=== PATIENT | female | born 1975 | race Caucasian/White ===

== ENCOUNTER 2017-05-01 19:05 | Observation (INO) | payer MEDICAID ==
[~2017-05-01] VITALS: Ht 160 cm; Wt 70.5 kg
[~2017-05-01 19:05] MED LIST: FLOMAX0.4 MG PO; HYDROCODONE-APA1 TAB PO; OXYCONTIN10 MG PO; PERCOCET 5-3251 TAB PO; PHENERGAN25 M1 PO
[2017-05-01 19:43] LABS: BASOPHILS 0.1 % (0-2); HEMATOCRIT 38.3 % (36.0-48.0); HEMOGLOBIN 13.1 g/dL (12-16); IMMATURE GRANULOCYTES 0.1 % (0-5); LYMPHOCYTES 23.2 % (15-50); MCH 33.2 pg (26.0-34.0); MCHC 34.2 g/dL (31.0-37.0); MCV 97.2 fL (80.0-100.0); MEAN PLATELET VOLUME 10.2 fL (7.4-10.4); MONOCYTES 4.8 % (2-11); NEUTROPHILS 70.8 % (40-80); PLATELET COUNT 280 10x3/uL (130-400); RBC 3.94 10x6/uL (4.00-5.40)
[2017-05-01 19:59] LABS: ALBUMIN 3.4 g/dL (3.4-5.0); ALKALINE PHOSPHATASE 98 U/L (46-116); ALT (SGPT) 26 U/L (10-68); BILIRUBIN - TOTAL 0.42 mg/dL (0.2-1.3); CALC OSMOLALITY 282 mosm/kg (275-300); CALCIUM 9.4 mg/dL (8.5-10.1); CARBON DIOXIDE 22.5 mmol/L (21.0-32.0); CHLORIDE - SERUM 106 mmol/L (98-107); GLUCOSE 81 mg/dL (74-106); POTASSIUM - SERUM 3.2 mmol/L (3.5-5.1); SODIUM 141 mmol/L (136-145); UREA NITROGEN 20 mg/dL (7-18); eGFR NON AFRICAN AMERICAN 64 mL/min (90-120)
[2017-05-01 20:11] LABS: CKMB 1.2 U/L (0.0-3.6); CREATINE KINASE 98 UL (21-215); PRO BNP 1947 pg/mL (0-125); TROPONIN-I 0.025 ng/mL (0.000-0.060)
[2017-05-01 22:36] LABS: APPEARANCE SLT CLOUDY (CLEAR); BILIRUBIN NEGATIVE (NEGATIVE); COLOR AMBER (YELLOW); GLUCOSE NEGATIVE (NEGATIVE); KETONE NEGATIVE (NEGATIVE); NITRITE NEGATIVE (NEGATIVE); PROTEIN NEGATIVE (NEGATIVE); SPECIFIC GRAVITY 1.025 (1.005-1.020); UROBILINOGEN NORMAL (NORMAL)
[2017-05-01 22:38] LABS: BACTERIA FEW /hpf (NONE SEEN); EPITHELIAL CELLS 0-5 /hpf (0-5)
[2017-05-01 22:39] LABS: WHITE CELLS - URINE 0-5 /hpf (0-5)
[2017-05-01 22:45] LABS: CKMB 1.3 U/L (0.0-3.6); CREATINE KINASE 90 UL (21-215); TROPONIN-I 0.021 ng/mL (0.000-0.060)
[2017-05-02] VITALS (7 sets, daily range): BP systolic 131–156; BP diastolic 89–104; Ht 160 cm; Wt 70.5 kg
[2017-05-02 05:39] LABS: CREATINE KINASE 94 UL (21-215)
[2017-05-02 05:40] LABS: TROPONIN-I < 0.017 ng/mL (0.000-0.060)
[2017-05-02 10:44] LABS: CKMB 0.7 U/L (0.0-3.6); CREATINE KINASE 66 UL (21-215)
[2017-05-02 10:48] LABS: TROPONIN-I < 0.017 ng/mL (0.000-0.060)
[2017-05-03 00:02] VITALS: BP 142/98
[2017-05-03 05:54] VITALS: BP 133/95
[2017-05-03 05:56] LABS: BASOPHILS 0 % (0-2); EOSINOPHILS 0 % (0-7); HEMOGLOBIN 12.3 g/dL (12-16); IMMATURE GRANULOCYTES 0.2 % (0-5); LYMPHOCYTES 6.4 % (15-50); MCH 32.6 pg (26.0-34.0); MCHC 33.2 g/dL (31.0-37.0); MCV 98.1 fL (80.0-100.0); MEAN PLATELET VOLUME 10.8 fL (7.4-10.4); MONOCYTES 2.1 % (2-11); NEUTROPHILS 91.3 % (40-80); PLATELET COUNT 281 10x3/uL (130-400); RBC 3.77 10x6/uL (4.00-5.40); RDW 13.2 % (11.5-14.5)
[2017-05-03 06:02] LABS: WBC 11.4 10x3/uL (4.8-10.8)
[2017-05-03 06:21] LABS: ANION GAP 17.3 mmol/L (8-16); BILIRUBIN - TOTAL 0.27 mg/dL (0.2-1.3); CALCIUM 8.8 mg/dL (8.5-10.1); CARBON DIOXIDE 19.3 mmol/L (21.0-32.0); CREATININE - SERUM 0.9 mg/dL (0.6-1.3); POTASSIUM - SERUM 3.6 mmol/L (3.5-5.1); PROTEIN - SERUM 7.4 g/dL (6.4-8.2)
[2017-05-03 08:49] VITALS: BP 144/96
[2017-05-03 12:34] VITALS: BP 152/103
[2017-05-03 16:46] VITALS: BP 135/95
[2017-05-03 20:00] VITALS: BP 146/104
[2017-05-04 02:30] VITALS: BP 155/114; BP 180/92
[2017-05-04 05:52] VITALS: BP 148/104
[2017-05-04 06:04] LABS: BASOPHILS 0.1 % (0-2); EOSINOPHILS 0.1 % (0-7); HEMATOCRIT 41.4 % (36.0-48.0); HEMOGLOBIN 13.6 g/dL (12-16); IMMATURE GRANULOCYTES 0.2 % (0-5); LYMPHOCYTES 10.9 % (15-50); MCH 33.1 pg (26.0-34.0); MCHC 32.9 g/dL (31.0-37.0); MONOCYTES 6.4 % (2-11); NEUTROPHILS 82.3 % (40-80); PLATELET COUNT 288 10x3/uL (130-400); RBC 4.11 10x6/uL (4.00-5.40); RDW 13.5 % (11.5-14.5); WBC 11.8 10x3/uL (4.8-10.8)
[2017-05-04 06:14] LABS: MCV 100.7 fL (80.0-100.0)
[2017-05-04 06:20] LABS: ALBUMIN 2.9 g/dL (3.4-5.0); ALKALINE PHOSPHATASE 90 U/L (46-116); BILIRUBIN - TOTAL 0.27 mg/dL (0.2-1.3); CALCIUM 8.7 mg/dL (8.5-10.1); CHLORIDE - SERUM 104 mmol/L (98-107); CREATININE - SERUM 0.8 mg/dL (0.6-1.3); POTASSIUM - SERUM 3.6 mmol/L (3.5-5.1); PROTEIN - SERUM 7.4 g/dL (6.4-8.2); SODIUM 137 mmol/L (136-145); UREA NITROGEN 17 mg/dL (7-18); eGFR NON AFRICAN AMERICAN 83 mL/min (90-120)
[2017-05-04 06:22] LABS: CALC OSMOLALITY 276 mosm/kg (275-300); GLUCOSE 109 mg/dL (74-106)
[2017-05-04 06:23] LABS: ALT (SGPT) 53 U/L (10-68); CARBON DIOXIDE 24.7 mmol/L (21.0-32.0)
[2017-05-04 07:55] VITALS: BP 124/86
[2017-05-04 11:52] VITALS: BP 138/104
[2017-05-04] MEDS ORDERED: IPRAT-ALBUT 0.5-3 ML INH (13:34)
[2017-05-04] MEDS ORDERED: ALBUTEROL2.5 MG/3 M INH (13:34)
[2017-05-04] MEDS ORDERED: NORVASC5 MG PO (13:35)
[2017-05-04] MEDS ORDERED: LISINOPRIL10 MG PO (13:35)
[2017-05-04] MEDS ORDERED: ASPIRIN325 MG PO (13:35)
[2017-05-04] MEDS ORDERED: PREDNISONE10 MG PO (13:35)
[2017-05-04] MEDS ORDERED: CATAPRES0.1 MG PO (13:35)
[2017-05-04] MEDS ORDERED: NICODERM C1 PATCH .1 TRANSDERM (13:35)
[2017-05-04] MEDS ORDERED: SYMBICORT 16010.2 GM INH (14:23)
[2017-05-04] MEDS ORDERED: PROAIR HFA8.5 GM INH (14:23)
== END 2017-05-04 16:09 | disposition home or self-care (01) ==
LOC: D.ER 19:05 → D.M2 22:19 → OBSVTIME 22:19 → D.M2 05-04 16:09
PROVIDERS: Emergency Medicine; Family Medicine
DX: J44.1 Chronic obstructive pulmonary disease with (acute) exacerbation (principal); I16.0 Hypertensive urgency; F17.203 Nicotine dependence unspecified, with withdrawal; I45.10 Unspecified right bundle-branch block; I27.20 Pulmonary hypertension, unspecified; I07.1 Rheumatic tricuspid insufficiency; R91.1 Solitary pulmonary nodule

== ENCOUNTER 2017-08-10 19:54 | Inpatient (IN) | payer MEDICAID ==
[~2017-08-10] VITALS: Ht 160 cm; Wt 67.6 kg
--- NOTE | ~2017-08-10 | OP ---
PATIENT NAME: SAUMYA ACUNA MEDICAL RECORD: [id number] :75 LOCATION:D.MS [id number] ADMISSION DATE:08/11/17 SURGEON: GERARDO CANO MD DATE OF OPERATION: 08/12/2017 SURGEON: Gerardo Cano MD ANESTHESIA: MAC by Bev Davis CRNA PREOPERATIVE DIAGNOSIS: Right proximal ureteral 8 x 6 mm stone. PROCEDURE: Right ESWL times 3000 shocks. FINDINGS: Radiodense ureteral stone. ESTIMATED BLOOD LOSS: None. CLINICAL HISTORY: This is a 42-year-old female, who was admitted with right flank pain due to a large stone in the right proximal ureter. Earlier this morning, she had a right ureteral stent inserted. We gave her antibiotics at that time. She comes now to have right lithotripsy performed. Since she had antibiotics earlier, she did not need another dose of antibiotics. DESCRIPTION OF PROCEDURE: The patient was placed on the treatment table. She was given IV sedation. The stone was targeted in 2 planes and was given 3000 shocks. The stone was seen to break up. I will see her in followup in 2 weeks' time with a KUB. If at that time, the stone is entirely gone, the stent will be removed by pulling on the string. TRANSINT:[id number] Voice Confirmation ID: [id number] DOCUMENT ID: [id number] GERARDO CANO MD at 1005 CC: [id number] DICTATION DATE: 08/12/17 1320 INFANT TEACHER: 08/12/17 1354 ADM IN [place] [id number] [place] [address]
--- NOTE | ~2017-08-10 | OP ---
PATIENT NAME: SAUMYA ACUNA MEDICAL RECORD: [id number] :75 LOCATION:D.MS [id number] ADMISSION DATE:08/11/17 SURGEON: GERARDO CANO MD DATE OF OPERATION: 08/12/2017 SURGEON: Gerardo Cano MD ANESTHESIA: MAC by Chase Haider CRNA PREOPERATIVE DIAGNOSIS: An 8-mm right proximal ureteral stone. POSTOPERATIVE DIAGNOSIS: An 8-mm right proximal ureteral stone. PROCEDURE: Cystoscopy, right retrograde pyelogram, right ureteral stent insertion 6-Swiss x 26 cm with string attached. FINDINGS: Radiodense right proximal ureteral stone at the L3 vertebral body. COMPLICATIONS: None. CLINICAL HISTORY: This is a 42-year-old female with a previous history of kidney stones. She came in with acute right flank pain with nausea and vomiting, but no fever. She had a CT scan of the abdomen and pelvis, which showed an 8 x 6 mm right proximal ureteral stone causing hydronephrosis. She was admitted for pain control. She is now consented for cystoscopy and right ureteral stent insertion. Later today, she will have a right ESWL to break up the stone. She is not allergic to any medications. She was given Ancef 1 gram legal services professional to the OR. She is 5 feet 2 inches in height and I estimated based on the patient's height that she would require a 22 cm long stent. DESCRIPTION OF PROCEDURE: The patient was given IV sedation. She was placed in the dorsal lithotomy position and prepped and draped. We obtained the serum beta hCG and it was negative prior to starting the procedure. Fluoroscopy showed the possible stone, but there was lot of bowel contents adjacent to it. This was also a problem with a KUB that I obtained last night. Therefore, we performed a retrograde pyelogram. A 5-Swiss open-ended ureteral catheter was inserted into the right ureteral orifice and contrast was injected. The diluted contrast outlined the stone at the L3 vertebral body level. A Sensor wire was then placed up into the renal pelvis. It had some difficulty getting past the stone as the ureter was quite tortuous there and makes a hairpin turn at that point. Once the wire was in correct position, the open-ended ureteral catheter was removed entirely. We then inserted the 6-Swiss x 22 cm ureteral stent. However, due to the tortuosity of the ureter, it turned out that the stent was too short. I then switched to a 6-Swiss x 26 cm ureteral stent and this was of adequate length. Once the stent was in correct position, the wire was entirely withdrawn. The distal end of the stent was pushed into the bladder using the pusher. The string from the distal end of the stent still hangs out of the patient's urethra. The patient's bladder was emptied completely and then the cystoscope was removed. The string was taped to the suprapubic area with a small piece of Tegaderm. The patient will be brought to the recovery room. She will then be transferred to have lithotripsy performed. TRANSINT:[id number] Voice Confirmation ID: [id number] DOCUMENT ID: [id number] OPERATIVE REPORT [id number] SAUMYA ACUNA, GERARDO Mccoy MD at 1317 CC: [id number] DICTATION DATE: 08/12/17 1030 EMERGENCY PLANNING AND RESPONSE MANAGER: 08/12/17 1111 [facility] IN [facility] [address] [id number]
[~2017-08-10 19:54] MED LIST changes: +ALBUTEROL2.5 MG/3 M INH; +ASPIRIN325 MG PO; +CATAPRES0.1 MG PO; +IPRAT-ALBUT 0.5-3 ML INH; +LISINOPRIL10 MG PO; +NICODERM C1 PATCH .1 TRANSDERM; +NORVASC5 MG PO; +PREDNISONE10 MG PO; +PROAIR HFA8.5 GM INH; +SYMBICORT 16010.2 GM INH
[2017-08-10 20:40] LABS: APPEARANCE HAZY (CLEAR); COLOR YELLOW (YELLOW); SPECIFIC GRAVITY 1.025 (1.005-1.020)
[2017-08-10 20:41] LABS: BILIRUBIN NEGATIVE (NEGATIVE); GLUCOSE NEGATIVE (NEGATIVE); KETONE NEGATIVE (NEGATIVE); NITRITE POSITIVE (NEGATIVE); PROTEIN 1+ mg/dL (NEGATIVE); UROBILINOGEN NORMAL (NORMAL)
[2017-08-10 20:46] LABS: BACTERIA MANY /hpf (NONE SEEN); WHITE CELLS - URINE >50 /hpf (0-5)
[2017-08-10 20:47] LABS: MUCUS <1+ /lpf (NONE SEEN)
[2017-08-10 22:00] LABS: BASOPHILS 0.2 % (0-2); EOSINOPHILS 0.5 % (0-7); HEMATOCRIT 37.3 % (36.0-48.0); HEMOGLOBIN 12.2 g/dL (12-16); IMMATURE GRANULOCYTES 0.2 % (0-5); LYMPHOCYTES 15.5 % (15-50); MCH 31.5 pg (26.0-34.0); MCHC 32.7 g/dL (31.0-37.0); MCV 96.4 fL (80.0-100.0); MEAN PLATELET VOLUME 10.2 fL (7.4-10.4); MONOCYTES 6.4 % (2-11); NEUTROPHILS 77.2 % (40-80); PLATELET COUNT 327 10x3/uL (130-400); RBC 3.87 10x6/uL (4.00-5.40); RDW 12.9 % (11.5-14.5)
[2017-08-10 22:20] LABS: ANION GAP 18.3 mmol/L (8-16); BILIRUBIN - TOTAL 0.37 mg/dL (0.2-1.3); CALCIUM 8.8 mg/dL (8.5-10.1); CARBON DIOXIDE 16.8 mmol/L (21.0-32.0); POTASSIUM - SERUM 5.1 mmol/L (3.5-5.1); PROTEIN - SERUM 7.8 g/dL (6.4-8.2)
[2017-08-11 03:32] VITALS: BP 141/99; BMI 26.4
[2017-08-11 04:00] VITALS: BP 135/94
[2017-08-11 08:07] VITALS: BP 118/80
[2017-08-11 10:43] LABS: HEMATOCRIT 36.6 % (36.0-48.0); HEMOGLOBIN 11.7 g/dL (12-16); MCH 31.1 pg (26.0-34.0); MCV 97.3 fL (80.0-100.0); MEAN PLATELET VOLUME 10.4 fL (7.4-10.4); PLATELET COUNT 303 10x3/uL (130-400); RBC 3.76 10x6/uL (4.00-5.40); RDW 13.1 % (11.5-14.5); WBC 21.3 10x3/uL (4.8-10.8)
[2017-08-11 10:49] LABS: ALBUMIN 2.5 g/dL (3.4-5.0); BILIRUBIN - TOTAL 0.3 mg/dL (0.2-1.3); CALCIUM 8.7 mg/dL (8.5-10.1)
[2017-08-11 10:56] LABS: ANION GAP 16.3 mmol/L (8-16); CARBON DIOXIDE 21.5 mmol/L (21.0-32.0); POTASSIUM - SERUM 3.8 mmol/L (3.5-5.1)
[2017-08-11 11:39] VITALS: BP 109/73
[2017-08-11 11:59] LABS: LYMPHOCYTES 11 % (15-50); MONOCYTES 4 % (2-11); NEUTROPHILS 81 % (40-80); PLATELET ESTIMATE NORMAL
[2017-08-11 14:15] VITALS: BMI 26.4
[2017-08-11 15:44] VITALS: BP 125/89
[2017-08-11 18:06] VITALS: Ht 160 cm; Wt 67.6 kg
[2017-08-11 19:48] VITALS: BP 122/89
[2017-08-12] VITALS (14 sets, daily range): BP systolic 111–152; BP diastolic 76–110
[2017-08-12 06:38] LABS: BASOPHILS 0.2 % (0-2); EOSINOPHILS 1.1 % (0-7); HEMOGLOBIN 12.1 g/dL (12-16); IMMATURE GRANULOCYTES 0.2 % (0-5); LYMPHOCYTES 17.9 % (15-50); MCH 31.2 pg (26.0-34.0); MCHC 31.8 g/dL (31.0-37.0); MCV 97.9 fL (80.0-100.0); MEAN PLATELET VOLUME 10.4 fL (7.4-10.4); MONOCYTES 7.7 % (2-11); NEUTROPHILS 72.9 % (40-80); PLATELET COUNT 273 10x3/uL (130-400); RBC 3.88 10x6/uL (4.00-5.40); RDW 13.1 % (11.5-14.5); WBC 12.4 10x3/uL (4.8-10.8)
[2017-08-12 07:05] LABS: ALBUMIN 2.5 g/dL (3.4-5.0); ALKALINE PHOSPHATASE 79 U/L (46-116); ALT (SGPT) 31 U/L (10-68); CALC OSMOLALITY 276 mosm/kg (275-300); CALCIUM 8.7 mg/dL (8.5-10.1); CHLORIDE - SERUM 107 mmol/L (98-107); CREATININE - SERUM 0.8 mg/dL (0.6-1.3); GLUCOSE 88 mg/dL (74-106); POTASSIUM - SERUM 3.6 mmol/L (3.5-5.1); PROTEIN - SERUM 7.3 g/dL (6.4-8.2); SODIUM 139 mmol/L (136-145); UREA NITROGEN 12 mg/dL (7-18); eGFR NON AFRICAN AMERICAN 83 mL/min (90-120)
[2017-08-12 09:27] LABS: HCG SERUM NEGATIVE (NEGATIVE)
[2017-08-13 02:26] VITALS: BP 124/89
[2017-08-13 04:24] LABS: BASOPHILS 0.1 % (0-2); EOSINOPHILS 1.6 % (0-7); HEMATOCRIT 33.5 % (36.0-48.0); HEMOGLOBIN 10.7 g/dL (12-16); IMMATURE GRANULOCYTES 0.4 % (0-5); LYMPHOCYTES 21.6 % (15-50); MCH 30.5 pg (26.0-34.0); MCHC 31.9 g/dL (31.0-37.0); MEAN PLATELET VOLUME 10.5 fL (7.4-10.4); MONOCYTES 8.6 % (2-11); NEUTROPHILS 67.7 % (40-80); PLATELET COUNT 278 10x3/uL (130-400); RBC 3.51 10x6/uL (4.00-5.40)
[2017-08-13 04:26] LABS: WBC 8.2 10x3/uL (4.8-10.8)
[2017-08-13 04:27] LABS: MCV 95.4 fL (80.0-100.0)
[2017-08-13 04:28] VITALS: BP 141/95
[2017-08-13 05:13] LABS: ALBUMIN 2.2 g/dL (3.4-5.0); ALKALINE PHOSPHATASE 73 U/L (46-116); BILIRUBIN - TOTAL 0.29 mg/dL (0.2-1.3); CALCIUM 8.4 mg/dL (8.5-10.1); CARBON DIOXIDE 19.4 mmol/L (21.0-32.0); CHLORIDE - SERUM 104 mmol/L (98-107); CREATININE - SERUM 0.6 mg/dL (0.6-1.3); GLUCOSE 96 mg/dL (74-106); POTASSIUM - SERUM 3.5 mmol/L (3.5-5.1); PROTEIN - SERUM 6.5 g/dL (6.4-8.2); SODIUM 137 mmol/L (136-145); eGFR NON AFRICAN AMERICAN > 90 mL/min (90-120)
[2017-08-13 05:14] LABS: ALT (SGPT) 22 U/L (10-68); CALC OSMOLALITY 271 mosm/kg (275-300); UREA NITROGEN 8 mg/dL (7-18)
[2017-08-13 09:48] VITALS: BP 121/86
[2017-08-13] MEDS ORDERED: FLORAJEN3 CAPS460 MG PO (13:03)
[2017-08-13] MEDS ORDERED: LEVAQUIN750 MG PO (13:03)
[2017-08-13 13:22] VITALS: BP 127/83
== END 2017-08-13 14:15 | disposition home or self-care (01) | DRG 691 ==
LOC: D.ER 19:54 → OBSVTIME 08-11 00:24 → D.EDHOLD 08-11 00:24 → D.MS 08-11 00:24
PROVIDERS: Family Medicine; Urology
PROC: BT1D1ZZ Fluoroscopy of Right Kidney, Ureter and Bladder using Low Osmolar Contrast (ICD-10-PCS; 2017-08-12)
PROC: 0T768DZ Dilation of Right Ureter with Intraluminal Device, Via Natural or Artificial Opening Endoscopic (ICD-10-PCS; 2017-08-12)
PROC: 0TF6XZZ Fragmentation in Right Ureter, External Approach (ICD-10-PCS; principal; 2017-08-12 09:45)
DX: N13.2 Hydronephrosis with renal and ureteral calculous obstruction (principal); F17.203 Nicotine dependence unspecified, with withdrawal; J44.9 Chronic obstructive pulmonary disease, unspecified; I10 Essential (primary) hypertension; I27.20 Pulmonary hypertension, unspecified; I07.1 Rheumatic tricuspid insufficiency

== ENCOUNTER → 2017-08-20 08:51 | Outpatient (CLI) | payer MEDICAID ==
[2017-08-11 18:06] VITALS: BMI 26.4
[~2017-08-20 08:51] MED LIST changes: +FLORAJEN3 CAPS460 MG PO; +LEVAQUIN750 MG PO
== END | disposition home or self-care (01) ==
LOC: D.RAD 08:51
DX: N20.0 Calculus of kidney (principal)

== ENCOUNTER → 2017-10-11 12:32 | Outpatient (CLI) | payer MEDICAID ==
[2017-08-11 18:06] VITALS: BMI 26.4
== END | disposition home or self-care (01) ==
LOC: D.CT 12:32
DX: R91.1 Solitary pulmonary nodule (principal)

== ENCOUNTER → 2018-07-06 08:00 | Outpatient (CLI) | payer MEDICAID ==
[2017-08-11 18:06] VITALS: BMI 26.4
== END | disposition home or self-care (01) ==
LOC: D.MAMMO 06-24 13:45
PROVIDERS: ATTEND Emergency Medicine
DX: Z12.31 Encounter for screening mammogram for malignant neoplasm of breast (principal)

== ENCOUNTER 2018-07-29 19:00 | Outpatient (CLI) | payer SELFPAY ==
[2017-08-11 18:06] VITALS: BMI 26.4
== END 2018-07-29 23:59 | disposition home or self-care (01) ==
LOC: D.MAMMO 19:00
PROVIDERS: ATTEND Emergency Medicine
DX: R92.8 Other abnormal and inconclusive findings on diagnostic imaging of breast (principal)

== ENCOUNTER 2018-08-07 23:45 | Inpatient (IN) | payer SELFPAY ==
[~2018-08-07] VITALS: Ht 160 cm; Wt 68.5 kg
--- NOTE | ~2018-08-07 | CN ---
PATIENT NAME:SAUMYA ACUNA MEDICAL RECORD: [id number] : 75 LOCATION:D. D.2120 ADMIT DATE: 08/08/18 ACCOUNT: [id number] CONSULTING PHYSICIAN: JERICA ZAMBRANO MD REFERRING PHYSICIAN: JODY VALADEZ MD DATE OF CONSULTATION: 08/08/2018 DIAGNOSES: 1. Atrial fibrillation with rapid ventricular response. 2. Abnormal ECG. 3. Chest pain. 4. Hypertension. 5. Abdominal pain. 6. Smoking history. 7. Chronic obstructive pulmonary disease. HISTORY OF PRESENT ILLNESS: Mrs. Acuna presents with abdominal pain and some chest pain, found to be in atrial fibrillation with rapid ventricular response. She also had episodes of nausea and vomiting. She was placed on a Cardizem drip. She is now in sinus rhythm. PHYSICAL EXAMINATION: GENERAL APPEARANCE: Well-nourished, well-developed, appears stated age. Level of distress, comfortable. PSYCHIATRIC: Mental status, alert, normal affect. Orientation, oriented to time, place and person. EYES: Lids and conjunctiva, noninjected. No discharge, no pallor. ENT: Lips, teeth, gums, normal dentition. Oropharynx, no cyanosis, no pallor. NECK: Carotid arteries, bilateral normal upstroke, no bruits, no thrills. JUGULAR VEINS: No jugular venous pressure or distention. CERVICAL LYMPH NODES: Nontender, nonenlarged. THYROID: Not enlarged. Nontender. No nodules. LUNGS: Respiratory effort, unlabored. CHEST: Normal curvature. No thoracic deformity. No chest wall tenderness. Percussion, resonant. Auscultation, clear. No wheezes, no rales, no rhonchi. CARDIOVASCULAR: Precordial exam, nondisplaced. No heaves or pericardial thrills. Rate and rhythm, regular. Heart sounds, normal S1, normal S2. No S3, no gallop, no rub. Systolic murmur, not heard. Diastolic murmur, not heard. EXTREMITIES: No cyanosis, no edema. Peripheral pulses, full and equal in all extremities, except as noted. No bruits appreciated. ABDOMEN: Soft, nondistended. Normal aorta. No bruit. Nontender. No masses. Liver, nontender, no hepatomegaly. Spleen, nontender, no splenomegaly. MUSCULOSKELETAL: No joint tenderness. No joint swelling. No erythema. NEUROLOGICAL: Normal gait, normal strength, normal tone. SKIN: Warm and dry. OVERALL IMPRESSION: Atrial fibrillation with rapid ventricular response. She did have significant ST-T changes with the atrial fibrillation. With that paired with her chest pain and possibly even the abdominal pain being cardiac in nature, will need evaluation with coronary angiography if she is still quite nauseated, but she is markedly better since the heart has been in rhythm. This is most likely all cardiac in nature. She is on a Cardizem drip. We will await until she is able to take p.o., change her to p.o. Cardizem, discontinuing her Norvasc and proceed with coronary angiography most likely in the a.m. CONSULT REPORT [id number] SAUMYA ACUNA TRANSINT:[id number] Voice Confirmation ID: [id number] DOCUMENT ID: [id number] JERICA ZAMBRANO MD CC: [id number] DICTATION DATE: 08/08/18803 BAND SAWMILL OPERATOR: 08/08/18 08 ADM IN [place] [id number] [place] [id number]
--- NOTE | ~2018-08-07 | OP ---
PATIENT NAME: SAUMYA ACUNA MEDICAL RECORD: [id number] :75 LOCATION:D.M2 D.0 ADMISSION DATE:08/08/18 SURGEON: JERICA ZAMBRANO MD DATE OF OPERATION: 08/09/2018 PROCEDURES: 1. Right heart catheterization. 2. Left heart catheterization. 3. Selective coronary angiography. 4. Left ventriculogram. INDICATION: Abnormal ECG, chest pain, pulmonary hypertension. PROCEDURE IN DETAIL: After informed consent was obtained and after a detailed description of risks, benefits as well as alternative therapies, the patient elected to proceed with angiogram and heart catheterization. The right femoral area was prepped and draped in normal sterile fashion. Right femoral artery was cannulated via modified Seldinger technique with placement of 5-Korean arterial sheath, 7-Korean venous sheath. All catheters exchanged through this sheath. FINDINGS: The left ventriculogram was performed in standard 30-degree HERNDON view, reveals good cardiac wall motion throughout all segments. Overall ejection fraction estimated 60%. SELECTIVE CORONARY ANGIOGRAPHY: Left main, left anterior descending, left circumflex, right coronary artery are smooth-walled vessels with no angiographic evidence of coronary artery disease. HEMODYNAMICS: Right atrial mean pressure of 5, right ventricular pressure 86/5, pulmonary artery pressure 90/20, pulmonary capillary wedge of 20. Adenosine was infused starting at 100 mcg going to 200 and 300 mcg terminated due to bradycardia with no change in pulmonary pressure with adenosine infusion. OVERALL IMPRESSION: 1. Fixed pulmonary hypertension with no response to adenosine. 2. No coronary artery disease is present. 3. Normal left ventricular function. TRANSINT:[id number] Voice Confirmation ID: [id number] DOCUMENT ID: [id number] JERICA ZAMBRANO MD CC: [id number] DICTATION DATE: 08/09/18 1048 MORTGAGE COUNSELOR: 08/09/18 1058 ADM IN [facility] [address] [place] [address]
--- NOTE | ~2018-08-07 | HEMODYNAMI ---
PATIENT:SAUMYA ACUNA MEDICAL RECORD: [id number] : 75 [id number] ADMISSION DATE: 08/08/18 Generatedon:08/09/201810:49 Patient name: SAUMYA ACUNA Patient #: [id number] SSN: : 1975 Date of study: 08/09/2018 Page: Of Hemodynamic Procedure Report Patient Data Patient Demographics Procedure consent was obtained First Name: SAUMYA Gender: Female Last Name: ARMAND : 1975 Middle Initial: S Age: 43 year(s) Patient #: [id number] Race: Unknown Additional ID: [id number] Contact details Address: [address] [place] [address] State: [place] City: [place] Zip code: [address] Past Medical History Allergies: No known allergies Admission Admission Data Admission Date: 08/08/2018 Admission Time: 2:33 Admit Source: Other Room #: D.2120 Lab Results Lab Result Date: 08/09/2018 Lab Result Time: 0:00 Biochemistry Name Units Result Min Max BUN mg/dl 16 --(---*)-- 7 18 Creatinine mg/dl 0.8 --(-*--)-- 0.6 1.3 CBC Name Units Result Min Max Hemoglobin g/dl 14.2 --(*---)-- 13.5 17.5 Procedure Procedure Types Cath Procedure Diagnostic Procedure LHC Right Heart RHC and LHC w/Coronaries Procedure Description Procedure Date Procedure Date: 08/09/2018 Procedure Start Time: 10:28 Procedure End Time: 10:46 Procedure Staff Name Function Dmear Lam MD Performing Physician Benigno Salas RT Monitor Adriana Nunez RN Nurse Guadalupe Cantu RT Scrub Procedure Data Cath Procedure Fluoroscopy Diagnostic fluoroscopy Total fluoroscopy Time: 2 time: 2 min min Diagnostic fluoroscopy Total fluoroscopy dose: 169 dose: 169 mGy mGy Contrast Material Contrast Material Type Amount (ml) Isovue 300 29 Entry Location Entry Primary Successful Side Size Upsize Upsize Entry Closure Cochran ccessful Closure Location (Fr) 1 (Fr) 2 (Fr) Remarks Device Remarks Femoral Right 5 Fr Exoseal artery Femoral Right 7 Fr Manual vein Short Compression Diagnostic catheters Device Type Used For End Catheter Placement SWAN 7Fr Thermodilution Pressure cather (131F7P) Measurement MULTIPACK Pigtail 5 Fr LV Angiography catheter MULTIPACK JL 4.0 5Fr Left Coronary catheter Angiography MULTIPACK 3DRC 5Fr Right Coronary catheter Angiography Procedure Complications No complications Procedure Medications Medication Administration Route Dosage 0.9% NaCl I.V. 100 ml/hr Oxygen etCO2 Nasal cannula 2 l/min Lidocaine 2% added to field 20 Heparin Flush Bag added to field 2 bags (1000units/500ml NS) Versed I.V. 2 mg Fentanyl I.V. 50 mcg Versed I.V. 2 mg Fentanyl I.V. 50 mcg Adenosine IV 3mg/ml I.V. 100 mcg/kg/min Adenosine IV 3mg/ml I.V. 200 mcg/kg/min Adenosine IV 3mg/ml I.V. 200 mcg/kg/min Adenosine IV 3mg/ml I.V. 0 mcg/kg/min Hemodynamics Rest HGB: 14.2 (g/dl) Heart Rate: 84 (bpm) Pressure Samples Time Site Value (mmHg) Purpose Heart Use Rate(bpm) 10:31 PA 87/35(51) Snapshot 87 10:35 PA 84/31(48) Snapshot 86 10:37 PA 86/34(50) Snapshot 88 10:39 PA 89/34(52) Snapshot 86 10:40 PA 91/27(42) Snapshot 46 10:40 PA 81/23(38) Snapshot 39 10:40 PCW 38/75(49) Snapshot 78 10:41 RV 78/3,13 Snapshot 78 Snapshots Pre Cath Intra NCS Post Cath Vital Signs Time Heart Resp SPO2 etCO2 NIBP (mmHg) Rhythm Pain Sedation Rate (ipm) (%) (mmHg) Status Level (bpm) 9:25:11 85 15 99 12 132/99(127) NSR 0 (11) 10(A) , No pain 9:29:21 90 19 98 28 140/96(106) NSR 0 (11) 10(A) , No pain 9:33:29 84 16 100 10.5 137/88(113) NSR 0 (11) 10(A) , No pain 9:37:37 90 15 98 13.5 137/93(109) NSR 0 (11) 10(A) , No pain 9:41:47 89 12 98 27.9 124/89(104) NSR 0 (11) 10(A) , No pain 9:45:57 88 14 98 26.3 132/86(100) NSR 0 (11) 10(A) , No pain 9:50:05 89 13 98 24.8 121/88(103) NSR 0 (11) 10(A) , No pain 9:54:12 88 14 99 22.6 121/84(97) NSR 0 (11) 10(A) , No pain 9:58:22 89 13 99 23.4 117/83(96) NSR 0 (11) 10(A) , No pain 10:02:32 88 14 99 20.3 125/77(94) NSR 0 (11) 10(A) , No pain 10:06:40 87 15 99 21.1 120/82(94) NSR 0 (11) 10(A) , No pain 10:10:48 87 14 100 24.1 126/84(96) NSR 0 (11) 10(A) , No pain 10:14:56 87 14 99 23.4 123/81(100) NSR 0 (11) 10(A) , No pain 10:19:03 87 12 99 21.8 118/85(100) NSR 0 (11) 10(A) , No pain 10:23:11 89 12 99 19.6 116/82(96) NSR 0 (11) 9(A) , No pain 10:27:19 85 12 98 22.6 115/82(95) NSR 0 (11) 9(A) , No pain 10:31:25 87 13 96 19.6 124/87(103) NSR 0 (11) 9(A) , No pain 10:35:35 84 12 96 18.1 128/83(109) NSR 0 (11) 9(A) , No pain 10:39:41 93 19 98 17.3 102/74(85) NSR 0 (11) 9(A) , No pain 10:43:46 84 19 98 18.8 107/71(85) NSR 0 (11) 10(A) , No pain Medications Time Medication Route Dose Verified Delivered Reason Notes Effectiveness by by 9:30:18 0.9% NaCl I.V. 100 ml/hr Demar Adriana used for Carole Nunez marketing strategy lead 9:30:27 Oxygen etCO2 2 l/min Demar Adriana used for Nasal Carole Nunez procedure cannula RN 9:30:32 Lidocaine 2% added 20ml vial Demar Benz for local to Carole Lam MD anesthetic field 9:30:36 Heparin Flush added 2 bags Demar Benz used for Bag to Carole Lam MD procedure (1000units/500ml field NS) 10:15:50 Versed I.V. 2 mg Demar Adriana for Carole Nunez sedation RN 10:15:56 Fentanyl I.V. 50 mcg Demar Adriana for Carole Nunez sedation RN 10:21:21 Versed I.V. 2 mg Demar Adriana for Carole Nunez sedation RN 10:21:25 Fentanyl I.V. 50 mcg Demar Adriana for Carole Nunez sedation RN 10:35:31 Adenosine IV I.V. 100 Demar Adriana Per 3mg/ml mcg/kg/min Carole Nunez physician RN 10:37:34 Adenosine IV I.V. 200 Demar Adriana Per 3mg/ml mcg/kg/min Carole Nunez physician RN 10:39:26 Adenosine IV I.V. 200 Demar Adriana Per 3mg/ml mcg/kg/min Carole Nunez physician RN 10:40:36 Adenosine IV I.V. 0 Demar Adriana Per 3mg/ml mcg/kg/min Carole Nunez physician corporate webmaster Log Time Note 9:06:19 Admit Source: Other 9:06:49 Diagnostic Cath status Elective 9:06:50 Benigno ROSALES(R) sent for patient. Start room use. 9:06:52 Time tracking: Regular hours (M-F 7:00 - 5:00) 9:06:56 Plan of Care:Hemodynamics will remain stable., Cardiac rhythm will remain stable., Comfort level will be maintained., Respiratory function will remain adequate., Patient/ family verbilizes understanding of procedure., Procedure tolerated without complication., Recovers from procedure without complications.. 9:22:50 Patient received from Med II to CCL 1 Alert and oriented. Tansferred to table in Supine position. 9:22:51 Warm blankets applied, and hanny hugger turned on for patient comfort. 9:22:51 Correct patient and procedure confirmed by team. 9:22:52 Signed procedure consent form obtained from patient. 9:22:53 ECG and BP/O2 sat monitors applied to patient. 9:24:11 Vital chart was started 9:24:12 Baseline sample Acquired. 9:30:18 0.9% NaCl 100 ml/hr I.V. was administered by Adriana Nunez RN; used for procedure; 9:30:27 Oxygen 2 l/min etCO2 Nasal cannula was administered by Adriana Nunez RN; used for procedure; 9:30:32 Lidocaine 2% 20ml vial added to field was administered by Demar Lam MD; for local anesthetic; 9:30:36 Heparin Flush Bag (1000units/500ml NS) 2 bags added to field was administered by Demar Lam MD; used for procedure; 9:35:27 Rhythm: sinus rhythm 9:35:29 Full Disclosure recording started 9:35:35 H&P Date Dictated: 08/09/2018 Within 30 days and on chart.. 9:35:37 Pre-procedure instructions explained to patient. 9:35:38 Pre-op teaching completed and patient verbalized understanding. 9:35:42 Family unavailable. 9:35:54 Patient NPO since Midnight. 9:36:02 Patient allergic to No known allergies 9:36:08 Is the patient allergic to Iodine/contrast media? No. 9:36:10 Is patient on blood thinner?No 9:36:13 Patient diabetic? No. 9:36:14 ----Pre-sedation anethsthesia assessment.---- 9:36:17 Previous problem with sedation/anesthesia? No ? 9:36:20 Snore? No 9:36:22 Sleep apnea? No 9:36:23 Deviated septum? No 9:36:26 Opens mouth fully? Yes 9:36:31 Sticks out tongue? Yes 9:36:37 Airway obstruction? Yes COPD 9:36:45 Dentures? Yes IN TIGHT 9:36:49 Pre procedure: right dorsailis pedis pulse 2+ Normal; easily identifiable; not easily obliterated 9:36:54 Patient pain scale 0/10 ?. 9:37:03 IV patent on arrival in right antecubital with 0.9% NaCl at 10ml/hr. 9::41 Lab Result : BUN 16 mg/dl ::41 Lab Result : Creatinine 0.8 mg/dl :: Lab Result : Hemoglobin 14.2 g/dl 9:37:44 Lab results completed and on chart. 9:37:48 Left groin area was prepped with betadine and draped in sterile fashion 9:37:51 Right groin area was prepped with chlora-prep and draped in sterile fashion 9:37:52 Alarms reviewed by R. N. 9:37:52 Sharps counted by scrub and verified by R.N. 10:01:08 Sharps counted by scrub and verified by R.N. 10:15:11 Zero performed for pressure channel P1 10:15:19 Physician arrived 10:15:19 --------ALL STOP TIME OUT------ 10:15:20 Final Timeout: patient, procedure, and site verified with staff and physician. All members of the team are in agreement. 10:15:21 Right groin site verified by team. 10:15:24 Maximum allowable Isovue 300 dose 300ml. Physician notified. (300ml for normal creatinines. For patients with creatinine of 1.7 or higher multiply weight(kg) x 5 divided by creatinine.) 10:15:28 Fire Safety Assessment: A--An alcohol-based skin anteseptic being used preoperatively., C--Open oxygen or nitrous oxide is being used., D--An ESU, laser, or fiber-optic light is being used. 10:15:32 Physical assessment completed. ASA score P 2 - A patient with mild systemic disease as per Demar Lam MD. 10:15:36 Sedation plan: IV Moderate Sedation Medication:Versed, Fentanyl 10:15:50 Versed 2 mg I.V. was administered by Adriana Nunez RN; for sedation; 10:15:56 Fentanyl 50 mcg I.V. was administered by Adriana Nunez RN; for sedation; 10:21:09 Use device set Femoral Dx 10:21:10 ACIST Syringe (32889) opened to sterile field. 10:21:11 Bag Decanter (2002S) opened to sterile field. 10:21:11 Medline Cath Pack ([id number]) opened to sterile field. 10:21:11 DIAGNOSTIC WIRE .035 260cm J wire (881788) opened to sterile field. 10:21:19 ACIST Hand Control (55448) opened to sterile field. 10:21:20 ACIST Manifold (89308) opened to sterile field. 10:21:20 DIAGNOSTIC Multipack 5Fr catheter set (SC1951) opened to sterile field. 10:21:21 Versed 2 mg I.V. was administered by Adriaan Nunez RN; for sedation; 10:21:21 Tegaderm 4 x 4 (1626W) opened to sterile field. 10:21:23 SHEATH 5FR Joppa (YJQ574) opened to sterile field. 10:21:25 Fentanyl 50 mcg I.V. was administered by Adriana Nunez RN; for sedation; 10:21:42 SHEATH 7FR Joppa (JVC233) opened to sterile field. 10:24:33 Procedure started. 10:28:34 Local anesthetic to right femoral artery with Lidocaine 2% by Demar Lam MD.INITIAL ACCESS ONLY 10:28:43 A 5 Fr sheath was inserted into the Right Femoral artery 10:28:59 A 7 Fr Short sheath was inserted into the Right Femoral vein 10:30:23 A SWAN 7Fr Thermodilution cather (131F7P) was advanced over the wire and used for Pressure Measurement. 10:30:40 Baseline sample Acquired. 10:35:31 Adenosine IV 3mg/ml 100 mcg/kg/min I.V. was administered by Adriana Nunez RN; Per physician; 10:37:34 Adenosine IV 3mg/ml 200 mcg/kg/min I.V. was administered by Adriana Nunez RN; Per physician; 10:39:26 Adenosine IV 3mg/ml 200 mcg/kg/min I.V. was administered by Adriana Nunez RN; Per physician; 10:40:36 Adenosine IV 3mg/ml 0 mcg/kg/min I.V. was administered by Adriana Nunez RN; Per physician; 10:41:31 Catheter removed. 10:41:41 A MULTIPACK Pigtail 5 Fr catheter was advanced over the wire and used for LV Angiography. 10:42:11 LV angiography performed. 10:42:13 LV gram done using HERNDON 10:42:18 EF : 60 % 10:42:19 Catheter removed. 10:42:26 A MULTIPACK JL 4.0 5Fr catheter was advanced over the wire and used for Left Coronary Angiography. 10:42:30 LCA angiography performed. 10:43:09 Catheter removed. 10:43:18 A MULTIPACK 3DRC 5Fr catheter was advanced over the wire and used for Right Coronary Angiography. 10:43:23 RCA angiography performed. 10:43:47 Catheter removed. 10:44:18 Sheath removed intact; hemostasis achieved with Exoseal to the Right Femoral artery. 10:44:21 EXOSEAL 5Fr (EX500) opened to sterile field. 10:44:47 Sheath removed intact; hemostasis achieved with Manual Compression to the Right Femoral vein. 10:44:49 Procedure ended.(Physican Out) 10:45:01 Fluoroscopy time 02.00 minutes. 10:45:14 Flurop Dose total: 169 10:45:14 Fluoroscopy dose: 169 mGy 10:45:24 Contrast amount:Isovue 300 29ml. 10:45:26 Sharps counted by scrub and verified by R.N. 10:45:27 Insertion/operative site no bleeding no hematoma. 10:45:29 Post-op/insertion site Right Femoral artery dressed using a 4 x 4 and Tegaderm. 10:45:32 Post right femoral artery:stable 10:45:34 Post Procedure Pulses reassessed and unchanged 10:45:36 Post procedure: right dorsailis pedis pulse 2+ Normal; easily identifiable; not easily obliterated. 10:45:40 Post procedure rhythm: sinus rhythm 10:45:41 Post procedure instruction explained to patient.Patient verbalizes understanding. 10:45:42 Procedure and supply charges have been captured, reviewed, submitted and are correct. 10:46:01 Procedure Complication : No complications 10:46:03 Vital chart was stopped 10:46:04 See physician's report for complete and final results. 10:46:06 Report given to PCU. 10:46:19 Patient transfered to PCU with Stretcher. 10:46:21 Procedure ended. 10:46:21 Full Disclosure recording stopped 10:46:26 End room use (Document Last) Device Usage Item Name Manufacture Quantity Catalog Hospital Part Current Minima l Lot# / Number Charge Number Stock Stock Serial# Code ACIST Syringe Acist 1 86360 871680 940792 264037 20 (11411) Medical Systems Inc Bag Decanter Microtek 1 2001S 517998 87171 482386 5 () Medical Inc. Medline Cath Medline 1 [id number] 067075 69115 555438 5 Pack ([id number]) DIAGNOSTIC St Oswaldo 1 378782 085534 703179 108610 30 WIRE .035 260cm J wire (518584) ACIST Hand Acist 1 28624 844732 987234 362743 5 Control Medical (70679) Systems Inc ACIST Manifold Acist 1 06606 744294 772679 939855 5 (32494) Medical Systems Inc DIAGNOSTIC Cardinal 1 [id number] 160718 68952 897889 30 Multipack 5Fr Health catheter set (AM4991) Tegaderm 4 x 4 3M 1 1626W 338788 784102 175224 5 (1626W) SHEATH 5FR Terumo 1 ZKB214 996929 601438 907156 5 Joppa (HYG090) SHEATH 7FR Terumo 1 IGR560 141142 606106 769235 5 Joppa (QXX587) SWAN 7Fr Donald 1 131F7P 193986 20984 768401 3 Thermodilution Lifesciences cather (131F7P) MULTIPACK Cardinal 1 754630 5 Pigtail 5 Fr Health catheter MULTIPACK JL Cardinal 1 401707 5 4.0 5Fr Health catheter MULTIPACK 3DRC Cardinal 1 297163 5 5Fr catheter Health EXOSEAL 5Fr Cardinal 1 EX500 979786 562909 136342 10 (EX500) Health Signature Audit [place] Stage Time Signature Unsigned Intra-Procedure 08/09/2018 Benigno ROSALES(Vamsi) 10:49:19 AM Signatures Monitor : Benigno Salas RT Signature : Date : Time : [facility] [address] [place] [address]
--- NOTE | ~2018-08-07 | EC ---
PATIENT:SAUMYA ACUNA DATE OF SERVICE: 08/08/18 SEX: F MEDICAL RECORD: [id number] DATE OF : 75 LOCATION:D.M2 D.212 AGE OF PATIENT: 43 ADMISSION DATE: 08/08/18 REFERRING PHYSICIAN: INTERPRETING PHYSICIAN: JERICA LAM MD ECHOCARDIOGRAM REPORT ECHO CHARGES 4 ECHO COMPLETE Date: 08/08/18 CLINICAL DIAGNOSIS: AFIB ECHOCARDIOGRAPHIC MEASUREMENTS (adult normal given) AC root (d.<3.7cm) 3.6 cm LV Septum d (<1.2 cm> 1.5 cm Valve Excursion 1.7 cm LV Septum (systole) 1.6 cm Left Atria (s.<4.0cm> 2.7 cm LVPW d(<1.2cm) 0.8 cm RV (d.<2.3cm) 3.1 cm LVPW (sytole) 1.2 cm LV diastole(<5.6CM) 4.6 cm MV E-F(>70mm/sec) cm LV systole 3.7 cm LVOT Diameter 1.7 cm MV exc.(>10mm) cm Est.ejection fraction (50-75%) % DOPPLER: LVIT cm/sec A 89 cm/sec E 37 cm/sec LA cm/sec RVSP 81.0 mmHg LVOT 112 cm/sec AOP1/2T m/s Asc. Ao 137 cm/sec RVOT 53 cm/sec RA cm/sec PA 55 cm/sec AV Gradient Peak 7.5 mmHg AV Mean 4.4 mmHg AV Area 1.9 cm MV Gradient Peak 2.5 mmHg MV Mean 1.2 mmHg MV Area cm COMMENTS: Business Instructor: Perry CASTILLORAMAKRISHNA LALA Best Worker: 1 Dr. Lam TAPE# PACS Pericardial Effusion N DATE OF SERVICE: 08/08/2018 ECHOCARDIOGRAM FINDINGS: 1. Left ventricular chamber size is within normal limits. Left ventricular systolic function is normal. Overall ejection fraction estimated at 60%. 2. Left atrium is within normal limits. Right atrium and right ventricular chamber sizes are moderately dilated. 3. Valvular structures have normal structure and motion. ECHOCARDIOGRAM REPORT [id number] SAUMYA ACUNA 4. Doppler interrogation reveals severe tricuspid regurgitation with pulmonary hypertension, pulmonary systolic pressure is estimated at 81 mmHg. 5. No evidence of pericardial effusion or left ventricular thrombus. TRANSINT:[id number] Voice Confirmation ID: [id number] DOCUMENT ID: [id number] JERICA LAM MD CC: [id number] DICTATION DATE: 08/08/18 1604 PROGRAM ARRANGER: 08/08/18 1822 ADM IN [facility] [address] [place] [address]
[2018-08-07] MEDS ORDERED: HYDRALAZINE HC100 MG PO (23:53)
[2018-08-07] MEDS ORDERED: COMBIVENT RESPIM4 GM INH (23:53)
[2018-08-07] MEDS ORDERED: MOBIC7.5 MG PO (23:54)
[2018-08-08] VITALS (10 sets, daily range): BP systolic 105–158; BP diastolic 51–103; Ht 160 cm; Wt 68.5 kg
[2018-08-08 00:23] LABS: BASOPHILS 0.3 % (0-2); EOSINOPHILS 2.4 % (0-7); HEMATOCRIT 41.7 % (36.0-48.0); HEMOGLOBIN 14.2 g/dL (12-16); IMMATURE GRANULOCYTES 0.1 % (0-5); MCH 32.9 pg (26.0-34.0); MCHC 34.1 g/dL (31.0-37.0); MCV 96.8 fL (80.0-100.0); MEAN PLATELET VOLUME 10.5 fL (7.4-10.4); MONOCYTES 6.1 % (2-11); NEUTROPHILS 83.1 % (40-80); PLATELET COUNT 303 10x3/uL (130-400); RBC 4.31 10x6/uL (4.00-5.40); RDW 13.1 % (11.5-14.5)
[2018-08-08 00:29] LABS: APTT 27.4 SECONDS (22.8-39.4)
[2018-08-08 00:30] LABS: INR 0.99 (0.85-1.17); PROTIME 12.6 SECONDS (11.6-15.0)
[2018-08-08 00:31] LABS: D-DIMER-QUANTITATIVE 0.38 ug/mLFEU (0.20-0.54)
[2018-08-08 00:32] LABS: HCG URINE NEGATIVE (NEGATIVE)
[2018-08-08 00:37] LABS: ALBUMIN 3.4 g/dL (3.4-5.0); ALKALINE PHOSPHATASE 126 U/L (46-116); ALT (SGPT) 81 U/L (10-68); BILIRUBIN - TOTAL 0.27 mg/dL (0.2-1.3); CALC OSMOLALITY 265 mosm/kg (275-300); CALCIUM 8.6 mg/dL (8.5-10.1); CARBON DIOXIDE 22.4 mmol/L (21.0-32.0); CHLORIDE - SERUM 99 mmol/L (98-107); CREATININE - SERUM 0.8 mg/dL (0.6-1.3); GLUCOSE 80 mg/dL (74-106); POTASSIUM - SERUM 3.9 mmol/L (3.5-5.1); PROTEIN - SERUM 9.4 g/dL (6.4-8.2); SODIUM 133 mmol/L (136-145); UREA NITROGEN 16 mg/dL (7-18); eGFR NON AFRICAN AMERICAN 83 mL/min (90-120)
[2018-08-08 00:48] LABS: AMYLASE - SERUM 48 U/L (25-115); CKMB 1.8 U/L (0.0-3.6); CREATINE KINASE 79 UL (21-215); LIPASE 148 U/L (73-393); TROPONIN-I 0.026 ng/mL (0.000-0.060)
[2018-08-08 00:48] LABS: APPEARANCE CLEAR (CLEAR); BACTERIA NONE SEEN /hpf (NONE SEEN); BILIRUBIN NEGATIVE (NEGATIVE); COLOR YELLOW (YELLOW); EPITHELIAL CELLS NSEEN /hpf (0-5); GLUCOSE NEGATIVE (NEGATIVE); KETONE NEGATIVE (NEGATIVE); NITRITE NEGATIVE (NEGATIVE); PROTEIN NEGATIVE (NEGATIVE); UROBILINOGEN NORMAL (NORMAL); WHITE CELLS - URINE 0-5 /hpf (0-5)
[2018-08-08] MEDS ORDERED: NORVASC10 MG PO (03:08)
[2018-08-09 03:55] VITALS: BP 119/79
[2018-08-09 05:39] LABS: BASOPHILS 0.1 % (0-2); EOSINOPHILS 0 % (0-7); HEMATOCRIT 38.7 % (36.0-48.0); HEMOGLOBIN 12.9 g/dL (12-16); IMMATURE GRANULOCYTES 0.1 % (0-5); MCH 32.3 pg (26.0-34.0); MCHC 33.3 g/dL (31.0-37.0); MCV 96.8 fL (80.0-100.0); MEAN PLATELET VOLUME 10.7 fL (7.4-10.4); MONOCYTES 10.1 % (2-11); NEUTROPHILS 73.7 % (40-80); PLATELET COUNT 249 10x3/uL (130-400); RDW 13.6 % (11.5-14.5); WBC 6.9 10x3/uL (4.8-10.8)
[2018-08-09 06:07] LABS: ALKALINE PHOSPHATASE 85 U/L (46-116); BILIRUBIN - TOTAL 0.23 mg/dL (0.2-1.3); CALCIUM 7.5 mg/dL (8.5-10.1); CARBON DIOXIDE 23.9 mmol/L (21.0-32.0); CHLORIDE - SERUM 104 mmol/L (98-107); CREATININE - SERUM 0.7 mg/dL (0.6-1.3); GLUCOSE 85 mg/dL (74-106); MAGNESIUM - SERUM 1.5 mg/dL (1.8-2.4); POTASSIUM - SERUM 3.8 mmol/L (3.5-5.1); PROTEIN - SERUM 7.2 g/dL (6.4-8.2); SODIUM 136 mmol/L (136-145); eGFR NON AFRICAN AMERICAN > 90 mL/min (90-120)
[2018-08-09 06:13] LABS: ALBUMIN 2.4 g/dL (3.4-5.0); ALT (SGPT) 59 U/L (10-68); CALC OSMOLALITY 269 mosm/kg (275-300); UREA NITROGEN 9 mg/dL (7-18)
[2018-08-09 08:37] VITALS: BP 137/91
[2018-08-09 12:13] VITALS: BP 132/90
[2018-08-09 16:30] VITALS: BP 131/77
--- NOTE | 2018-08-09 17:47 | MORECARE ---
CASE MANAGEMENT DISCHARGE SUMMARY PATIENT: SAUMYA ACUNA UNIT: [id number] ADM DATE: 08/08/18 AGE: 43 : 75 SEX: F ROOM/BED: D.2120 AUTHOR: JAYSON MAJANO PHYSICIAN: REFERRING PHYSICIAN: JODY VALADEZ MD DATE OF SERVICE: 08/09/18 Discharge Plan Patient Name: SAUMYA ACUNA Facility: [facility]:[place] : 1975 Planned Disposition: Home Anticipated Discharge Date: Discharge Date: Expected LOS: Initial Reviewer: [email or web address] Initial Review Date: 08/09/2018 Generated: 08/09/18 6:46 pm DCPIA - Discharge Planning Initial Assessment Updated by [email or web address]: Jhonny Fernandez on 08/09/18 5:46 pm * Is the patient Alert and Oriented? Yes * How many steps to enter\exit or inside your home? NONE * PCP DR. COREAS * Pharmacy [facility] IN [place] * Preadmission Environment Home with Family * ADLs Independent * Equipment None * Other Equipment NO MEDICAL EQUIPMENT PROVIDER PREFERENCE * List name and contact numbers for known caregivers / representatives who currently or will assist patient after discharge: TINY REED, SON, MARIAH PÉREZ, MOM, * Verbal permission to speak to the caregivers and representatives has been obtained from the patient. Yes * Community resources currently utilized None * Please name any agencies selected above. NONE * Additional services required to return to the preadmission environment? No * Can the patient safely return to the preadmission environment? Yes * Has this patient been hospitalized within the prior 30 days at any hospital? No Patient Name: SAUMYA ACUNA Page 23248 at 1747 All edits/amendments must be made on the electronic document DICTATION DATE: 08/09/181745 KOSHER BUTCHER: JACKELYN 08/09/181745 RPT#: [id number] DC DATE: STATUS: ADM IN [facility] [address] [place] [address] END OF REPORT
--- NOTE | 2018-08-09 17:54 | MORECARE ---
CASE MANAGEMENT DISCHARGE SUMMARY PATIENT: SAUMYA ACUNA UNIT: [id number] ADM DATE: 08/08/18 AGE: 43 : 75 SEX: F ROOM/BED: D.2600 AUTHOR: GRETEL,DOC PHYSICIAN: REFERRING PHYSICIAN: JODY VALADEZ MD DATE OF SERVICE: 08/09/18 Discharge Plan Patient Name: SAUMYA ACUNA Facility: [facility]:[place] : 1975 Planned Disposition: Home Anticipated Discharge Date: Discharge Date: Expected LOS: Initial Reviewer: [email or web address] Initial Review Date: 08/09/2018 Generated: 08/09/18 6:54 pm Comments DCP- Discharge Planning Updated by [email or web address]: Jhonny Fernnadez on 08/09/18 4:[address] Patient Name: SAUMYA ACUNA Admission Status: ER Accout number: [id number] Admission Date: 08-08-2018 : 1975 Admission Diagnosis:UNSPECIFIED ATRIAL FIBRILLATION Attending: JODY VALADEZ Current LOS: 1 Anticipated DC Date: Planned Disposition: Home Primary Insurance: UNINSURED DISCOUNT PLAN Discharge Planning Comments: CM MET WITH PT AND MOTHER IN ROOM TO DISCUSS DISCHARGE PLANNING AND NEEDS. SAUMYA ACUNA provided verbal consent to discuss current and ongoing needs with/in the presence of: BETO, HER MOTHER. PT REPORTS LIVING AT HOME INDEPENDENTLY WITH HER MOTHER. PT HAS NO MEDICAL EQUIPMENT AND NO OUTSIDE SERVICES ASSISTING IN THE HOME. CM DISCUSSED AVAILABILITY OF HOME HEALTH, REHAB SERVICES AND MEDICAL EQUIPMENT. PT DENIES DISCHARGE NEEDS, REPORTS HER FAMILY WILL PICK HER UP FOR DISCHARGE HOME. PT REPORTS HAVING QUAL CHOICE PRIVATE OPTION INSURANCE BUT HAS NEVER RECEIVED A CARD. CM NOTIFIED MÓNICA OF [facility] WHO WILL MEET WITH PT THEY HAVE FOUND NO INSURANCE COVERAGE TO DATE. PT PLANS TO DISCHARGE HOME WITH MOTHER, DENIES NEEDS AT THIS TIME. CM TO FOLLOW AND ASSIST IF NEEDED. Road Repairer: Jhonny Fernandez DCPIA - Discharge Planning Initial Assessment Updated by [email or web address]: Jhonny Fernandez on 08/09/18 5:46 pm * Is the patient Alert and Oriented? Yes * How many steps to enter\exit or inside your home? NONE * PCP DR. COREAS * Pharmacy [facility] IN [place] * Preadmission Environment Home with Family * ADLs Independent * Equipment None * Other Equipment NO MEDICAL EQUIPMENT PROVIDER PREFERENCE * List name and contact numbers for known caregivers / representatives who currently or will assist patient after discharge: TINY REED, SON, MARIAH PÉREZ, MOM, * Verbal permission to speak to the caregivers and representatives has been obtained from the patient. Yes * Community resources currently utilized None * Please name any agencies selected above. NONE * Additional services required to return to the preadmission environment? No * Can the patient safely return to the preadmission environment? Yes * Has this patient been hospitalized within the prior 30 days at any hospital? No Last DP export: 08/09/18 4:46 pm Patient Name: SAUMYA ACUNA Page 34161 at 1754 All edits/amendments must be made on the electronic document DICTATION DATE: 08/09/181752 MANAGER OFFICE SERVICES: JACKELYN 08/09/181752 RPT#: [id number] DC DATE: STATUS: ADM IN [facility] [address] [place] [address] END OF REPORT
[2018-08-09 20:00] VITALS: BP 127/90
[2018-08-09 23:31] LABS: UDS - AMPHET POSITIVE QUAL (NEGATIVE); UDS - BARB NEGATIVE QUAL (NEGATIVE); UDS - BENZO POSITIVE QUAL (NEGATIVE); UDS - COCAINE NEGATIVE QUAL (NEGATIVE); UDS - OPIATE POSITIVE QUAL (NEGATIVE); UDS - PCP NEGATIVE QUAL (NEGATIVE); UDS - THC POSITIVE QUAL (NEGATIVE)
[2018-08-10] VITALS: BP 141/93
[2018-08-10 04:00] VITALS: BP 135/92
[2018-08-10 06:49] LABS: BASOPHILS 0.4 % (0-2); EOSINOPHILS 0.6 % (0-7); HEMATOCRIT 39.2 % (36.0-48.0); HEMOGLOBIN 12.9 g/dL (12-16); IMMATURE GRANULOCYTES 0.2 % (0-5); LYMPHOCYTES 37.8 % (15-50); MCH 31.9 pg (26.0-34.0); MCHC 32.9 g/dL (31.0-37.0); MCV 96.8 fL (80.0-100.0); MONOCYTES 10.3 % (2-11); NEUTROPHILS 50.7 % (40-80); PLATELET COUNT 273 10x3/uL (130-400); RBC 4.05 10x6/uL (4.00-5.40); RDW 13.7 % (11.5-14.5)
[2018-08-10 06:52] LABS: WBC 5.1 10x3/uL (4.8-10.8)
[2018-08-10 07:13] LABS: ALBUMIN 2.6 g/dL (3.4-5.0); ALKALINE PHOSPHATASE 93 U/L (46-116); ALT (SGPT) 55 U/L (10-68); BILIRUBIN - DIRECT 0.09 mg/dL (0.00-0.30); BILIRUBIN - INDIRECT 0.11 mg/dL (0.00-1.00); CALC OSMOLALITY 275 mosm/kg (275-300); CALCIUM 8.1 mg/dL (8.5-10.1); CHLORIDE - SERUM 106 mmol/L (98-107); CREATININE - SERUM 0.7 mg/dL (0.6-1.3); GLUCOSE 79 mg/dL (74-106); MAGNESIUM - SERUM 1.8 mg/dL (1.8-2.4); PHOSPHOROUS 2.6 mg/dL (2.5-4.9); POTASSIUM - SERUM 3.7 mmol/L (3.5-5.1); PROTEIN - SERUM 7.4 g/dL (6.4-8.2); SODIUM 139 mmol/L (136-145); UREA NITROGEN 10 mg/dL (7-18); eGFR NON AFRICAN AMERICAN > 90 mL/min (90-120)
[2018-08-10 09:23] VITALS: BP 134/93
[2018-08-10 13:01] VITALS: BP 129/94
--- NOTE | 2018-08-10 18:19 | MORECARE ---
CASE MANAGEMENT DISCHARGE SUMMARY PATIENT: SAUMYA ACUNA UNIT: [id number] ADM DATE: 08/08/18 AGE: 43 : 75 SEX: F ROOM/BED: D.8200 AUTHOR: JAYSON MAJANO PHYSICIAN: REFERRING PHYSICIAN: JOYD VALADEZ MD DATE OF SERVICE: 08/10/18 Discharge Plan Patient Name: SAUMYA ACUNA Facility: [facility]:[place] : 1975 Planned Disposition: Home Anticipated Discharge Date: Discharge Date: Expected LOS: Initial Reviewer: [email or web address] Initial Review Date: 08/09/2018 Generated: 08/10/18 7:19 pm Comments DCP- Discharge Planning Updated by [id number]: Jazmine Rinaldi on 08/10/18 5:[address] @ 1121, MET WITH PATIENT IN REGARDS TO ORDER RECEIVED FOR NEBULIZER AND HOME OXYGEN. EXPLAINED THAT PER WALK TEST, SHE DOES NOT QUALIFY FOR HOME OXYGEN AND SHE STATED UNDERSTANDING. I VERIFIED THAT SHE DID NOT HAVE A HOME NUBULIZER AND SHE SAID NO. WHILE REVIEWING HER INSURANCE, SHE HAS STATED THAT SHE HAS QUAL[employer]ICE MEDICAID. I QUESTIONED IF SHE HAD A CARD THAT I COULD MAKE A COPY OF TO SEND TO THE BUSINESS OFFICE, AND SHE STATED THAT SHE NEVER GOT A CARD, JUST A LETTER. I EXPLAINED THAT I WOULD SEE IF THERE WAS ANY WAY WE COULD VERIFY THIS BEFORE WE STARTED ORDERING EQUIPMENT. SHE WENT AHEAD AND SIGNED A JAKI FOR [facility]. I CALLED AND SPOKE WITH DANNA, WHO IS GOING TO TRY TO HELP ME SEE IF WE CAN GET THEINFORMATION. IF NOT, I WILL TRY TO GET WITH MED DATA FIRST THING IN THE AM. CM WILL CONTINUE TO FOLLOW FOR HOME NEEDS. DCP- Discharge Planning Updated by [id number]: Jhonny Fernandez on 08/09/18 4:[address] Patient Name: SAUMYA ACUNA Admission Status: ER Accout number: [id number] Admission Date: 08-08-2018 : 1975 Admission Diagnosis:UNSPECIFIED ATRIAL FIBRILLATION Attending: JODY VALADEZ Current LOS: 1 Anticipated DC Date: Planned Disposition: Home Primary Insurance: UNINSURED DISCOUNT PLAN Discharge Planning Comments: CM MET WITH PT AND MOTHER IN ROOM TO DISCUSS DISCHARGE PLANNING AND NEEDS. SAUMYA ACUNA provided verbal consent to discuss current and ongoing needs with/in the presence of: BETO, HER MOTHER. PT REPORTS LIVING AT HOME INDEPENDENTLY WITH HER MOTHER. PT HAS NO MEDICAL EQUIPMENT AND NO OUTSIDE SERVICES ASSISTING IN THE HOME. CM DISCUSSED AVAILABILITY OF HOME HEALTH, REHAB SERVICES AND MEDICAL EQUIPMENT. PT DENIES DISCHARGE NEEDS, REPORTS HER FAMILY WILL PICK HER UP FOR DISCHARGE HOME. PT REPORTS HAVING QUAL CHOICE PRIVATE OPTION INSURANCE BUT HAS NEVER RECEIVED A CARD. CM NOTIFIED MÓNICA OF [employer] WHO WILL MEET WITH PT THEY HAVE FOUND NO INSURANCE COVERAGE TO DATE. PT PLANS TO DISCHARGE HOME WITH MOTHER, DENIES NEEDS AT THIS TIME. CM TO FOLLOW AND ASSIST IF NEEDED. Bone Density Technician: Jhonny Fernandez DCPIA - Discharge Planning Initial Assessment Updated by [id number]: Jhonny Fernandez on 08/09/18 5:46 pm * Is the patient Alert and Oriented? Yes * How many steps to enter\exit or inside your home? NONE * PCP DR. COREAS * [facility] [place] * Preadmission Environment Home with Family * ADLs Independent * Equipment None * Other Equipment NO MEDICAL EQUIPMENT PROVIDER PREFERENCE * List name and contact numbers for known caregivers / representatives who currently or will assist patient after discharge: TINY REED, SON, MARIAH PÉREZ, MOM, * Verbal permission to speak to the caregivers and representatives has been obtained from the patient. Yes * Community resources currently utilized None * Please name any agencies selected above. NONE * Additional services required to return to the preadmission environment? No * Can the patient safely return to the preadmission environment? Yes * Has this patient been hospitalized within the prior 30 days at any hospital? No Coverage Notice Reviewer: [id number] [facility] Notice Issued Date-Time: 08/10/2018 11:21 Notice Type: Patient Choice Letter Notice Delivered To: Patient Relationship to Patient: Self Downstream Biomanufacturing Technician Name: Delivery Method: - Ruby Days: Prior Verbal Notification: Recipient Understood Notice: Recipient Signature: Med Rec Note Co-signed by Attending: Coverage Notice Comment: Last DP export: 08/09/18 4:54 pm Patient Name: SAUMYA ACUNA Page [phone] at 1819 All edits/amendments must be made on the electronic document DICTATION DATE: 08/10/181817 NURSE RESEARCHER: JACKELYN 08/10/181817 RPT#: [id number] DC DATE: STATUS: ADM IN [facility] [address] [place] [address] END OF REPORT
[2018-08-10 18:45] VITALS: BP 140/79
[2018-08-10 20:00] VITALS: BP 132/92
[2018-08-11] VITALS: BP 123/82
[2018-08-11 04:00] VITALS: BP 129/84
[2018-08-11 05:57] LABS: BASOPHILS 0.4 % (0-2); EOSINOPHILS 3.4 % (0-7); HEMATOCRIT 38.3 % (36.0-48.0); HEMOGLOBIN 12.8 g/dL (12-16); IMMATURE GRANULOCYTES 0.2 % (0-5); LYMPHOCYTES 41.8 % (15-50); MCHC 33.4 g/dL (31.0-37.0); MCV 95.8 fL (80.0-100.0); MEAN PLATELET VOLUME 10.2 fL (7.4-10.4); MONOCYTES 7.8 % (2-11); NEUTROPHILS 46.4 % (40-80); PLATELET COUNT 259 10x3/uL (130-400); RDW 13.7 % (11.5-14.5); WBC 5.7 10x3/uL (4.8-10.8)
[2018-08-11 06:14] LABS: ALBUMIN 2.4 g/dL (3.4-5.0); ALKALINE PHOSPHATASE 82 U/L (46-116); ALT (SGPT) 45 U/L (10-68); BILIRUBIN - TOTAL 0.31 mg/dL (0.2-1.3); CALC OSMOLALITY 277 mosm/kg (275-300); CALCIUM 8.1 mg/dL (8.5-10.1); CARBON DIOXIDE 25.3 mmol/L (21.0-32.0); CHLORIDE - SERUM 105 mmol/L (98-107); CREATININE - SERUM 0.6 mg/dL (0.6-1.3); GLUCOSE 92 mg/dL (74-106); MAGNESIUM - SERUM 1.8 mg/dL (1.8-2.4); POTASSIUM - SERUM 3.7 mmol/L (3.5-5.1); PROTEIN - SERUM 7.1 g/dL (6.4-8.2); SODIUM 139 mmol/L (136-145); UREA NITROGEN 13 mg/dL (7-18); eGFR NON AFRICAN AMERICAN > 90 mL/min (90-120)
[2018-08-11 09:37] VITALS: BP 140/95
[2018-08-11 11:19] LABS: HEPATITIS C ANTIBODY >11.0 S/CO RAT (0.0-0.9)
--- NOTE | 2018-08-11 11:40 | MORECARE ---
CASE MANAGEMENT DISCHARGE SUMMARY PATIENT: SAUMYA ACUNA UNIT: [id number] ADM DATE: 08/08/18 AGE: 43 : 75 SEX: F ROOM/BED: D.9143 AUTHOR: GRETELDOC PHYSICIAN: REFERRING PHYSICIAN: JODY VALADEZ MD DATE OF SERVICE: 08/11/18 Discharge Plan Patient Name: SAUMYA ACUNA Facility: [facility]:[place] : 1975 Planned Disposition: Home Anticipated Discharge Date: Discharge Date: Expected LOS: Initial Reviewer: [id number] Initial Review Date: 08/09/2018 Generated: 08/11/18 12:40 pm Comments DCP- Discharge Planning Updated by [id number]: Jazmine Rinaldi on 08/11/18 10:[address] CONFIRMED WITH MÓNICA IN [facility] THAT THE PATIENTS INSURANCE TERMED ON 06/09/18 AND HE STATED THAT THEY ARE WORKING ON GETTING HER INSURANCE, BUT ARE IN NEED OF EMPLOYER INCOME RECORDS TO COMPLETE THIS.. I HAVE RELAYED THIS INFORMATION TO ARLENE CARTER [facility] AND SHE STATED THAT THEY WERE GOING TO DISCHARGE THE PATIENT ON DUONEBS AND SYMBICORT. I WENT IN THE ROOM AND HAD A CONVERSATION WITH THE PATIENT. SHE IS AWARE OF HER INSURANCE SITUTATION SHE SAID MÓNICA CAME TO TALK TO HER. I HAVE EXPLAINED THAT THE NEBULIZER WOULD BE $ 50.00 OUT OF POCKET AND SHE STATED THAT SHE WOULD BE ABLE TO PAY IT, BUT NOT UNTIL AFTER SHE GETS HER PAYCHECK FROM HER JOB. 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 WHILE TYPING THIS NOTE, RECEIVED CALL BACK FROM [employer], . THEY DO HAVE ALL IN ONE NEBULIZERS THAT IF THE PATIENT BRINGS A SCRIPT (EVEN THOUGH SHE DOES NOT HAVE INSURANCE) SHE WOULD ONLY HAVE TO PAY $31.99. I WENT TO EXPLAIN THIS TO THE PATIENT AND SHE STATED THAT SHE WOULD RATHER DO THAT. I WILL GET HER THE SCRIPT THAT SHE NEEDS. DCP- Discharge Planning Updated by [id number]: Jazmine Rinaldi on 08/10/18 5:[address] @ 1121, MET WITH PATIENT IN REGARDS TO ORDER RECEIVED FOR NEBULIZER AND HOME OXYGEN. EXPLAINED THAT PER WALK TEST, SHE DOES NOT QUALIFY FOR HOME OXYGEN AND SHE STATED UNDERSTANDING. I VERIFIED THAT SHE DID NOT HAVE A HOME NUBULIZER AND SHE SAID NO. WHILE REVIEWING HER INSURANCE, SHE HAS STATED THAT SHE HAS QUALCHOICE MEDICAID. I QUESTIONED IF SHE HAD A CARD THAT I COULD MAKE A COPY OF TO SEND TO THE BUSINESS OFFICE, AND SHE STATED THAT SHE NEVER GOT A CARD, JUST A LETTER. I EXPLAINED THAT I WOULD SEE IF THERE WAS ANY WAY WE COULD VERIFY THIS BEFORE WE STARTED ORDERING EQUIPMENT. SHE WENT AHEAD AND SIGNED A JAKI FOR [facility]. I CALLED AND SPOKE WITH DANNA, WHO IS GOING TO TRY TO HELP ME SEE IF WE CAN GET THEINFORMATION. IF NOT, I WILL TRY TO GET WITH MED DATA FIRST THING IN THE AM. CM WILL CONTINUE TO FOLLOW FOR HOME NEEDS. DCP- Discharge Planning Updated by [id number]: Jhonny Fernandez on 08/09/18 4:[address] Patient Name: SAUMYA ACUNA Admission Status: ER Accout number: [id number] Admission Date: 08-08-2018 : 1975 Admission Diagnosis:UNSPECIFIED ATRIAL FIBRILLATION Attending: JODY VALADEZ Current LOS: 1 Anticipated DC Date: Planned Disposition: Home Primary Insurance: UNINSURED DISCOUNT PLAN Discharge Planning Comments: CM MET WITH PT AND MOTHER IN ROOM TO DISCUSS DISCHARGE PLANNING AND NEEDS. SAUMYA ACUNA provided verbal consent to discuss current and ongoing needs with/in the presence of: BETO, HER MOTHER. PT REPORTS LIVING AT HOME INDEPENDENTLY WITH HER MOTHER. PT HAS NO MEDICAL EQUIPMENT AND NO OUTSIDE SERVICES ASSISTING IN THE HOME. CM DISCUSSED AVAILABILITY OF HOME HEALTH, REHAB SERVICES AND MEDICAL EQUIPMENT. PT DENIES DISCHARGE NEEDS, REPORTS HER FAMILY WILL PICK HER UP FOR DISCHARGE HOME. PT REPORTS HAVING QUAL CHOICE PRIVATE OPTION INSURANCE BUT HAS NEVER RECEIVED A CARD. CM NOTIFIED MÓNICA OF [employer] WHO WILL MEET WITH PT THEY HAVE FOUND NO INSURANCE COVERAGE TO DATE. PT PLANS TO DISCHARGE HOME WITH MOTHER, DENIES NEEDS AT THIS TIME. CM TO FOLLOW AND ASSIST IF NEEDED. Bundle Shaker: Jhonny Fernandez DCPIA - Discharge Planning Initial Assessment Updated by [id number]: Jhonny Fernandez on 08/09/18 5:46 pm * Is the patient Alert and Oriented? Yes * How many steps to enter\exit or inside your home? NONE * PCP DR. COREAS * Pharmacy [facility] IN [place] * Preadmission Environment Home with Family * ADLs Independent * Equipment None * Other Equipment NO MEDICAL EQUIPMENT PROVIDER PREFERENCE * List name and contact numbers for known caregivers / representatives who currently or will assist patient after discharge: TINY REED, SON, MARIAH PÉREZ, MOM, * Verbal permission to speak to the caregivers and representatives has been obtained from the patient. Yes * Community resources currently utilized None * Please name any agencies selected above. NONE * Additional services required to return to the preadmission environment? No * Can the patient safely return to the preadmission environment? Yes * Has this patient been hospitalized within the prior 30 days at any hospital? No Coverage Notice Reviewer: [id number] Kai Rinaldi Notice Issued Date-Time: 08/10/2018 11:21 Notice Type: Patient Choice Letter Notice Delivered To: Patient Relationship to Patient: Self Kettle Operator Name: Delivery Method: - Ruby Days: Prior Verbal Notification: Recipient Understood Notice: Recipient Signature: Med Rec Note Co-signed by Attending: Coverage Notice Comment: Last DP export: 08/10/18 5:19 pm Patient Name: SAUMYA ACUNA Page [phone] at 1140 All edits/amendments must be made on the electronic document DICTATION DATE: 08/11/18 1140 DAIRY BACTERIOLOGIST: JACKELYN 08/11/18 1140 RPT#: [id number] DC DATE: STATUS: ADM IN [facility] [address] [place] [address] END OF REPORT
[2018-08-11 12:27] VITALS: BP 136/93
[2018-08-11] MEDS ORDERED: CARDIZEM CD120 MG PO (13:06)
[2018-08-11] MEDS ORDERED: ATROVENT 0.02%2.5 ML UPD (13:06)
[2018-08-11] MEDS ORDERED: SYMBICORT 16010.2 GM INH (13:07)
[2018-08-11] MEDS ORDERED: ASPIRIN325 MG PO (14:16)
--- NOTE | 2018-08-11 18:01 | MORECARE ---
CASE MANAGEMENT DISCHARGE SUMMARY PATIENT: SAUMYA ACUNA UNIT: [id number] ADM DATE: 08/08/18 AGE: 43 : 75 SEX: F ROOM/BED: D.1687 AUTHOR: GRETELDOC PHYSICIAN: REFERRING PHYSICIAN: JODY VALADEZ MD DATE OF SERVICE: 08/11/18 Discharge Plan Patient Name: SAUMYA ACUNA Facility: [facility]:[place] : 1975 Planned Disposition: Home Anticipated Discharge Date: Discharge Date: 08/11/2018 Expected LOS: Initial Reviewer: [id number] Initial Review Date: 08/09/2018 Generated: 08/11/18 7:00 pm Comments DCP- Discharge Planning Updated by [id number]: Jazmine Rinaldi on 08/11/18 10:[address] CONFIRMED WITH MÓNICA IN [facility] THAT THE PATIENTS INSURANCE TERMED ON 06/09/18 AND HE STATED THAT THEY ARE WORKING ON GETTING HER INSURANCE, BUT ARE IN NEED OF EMPLOYER INCOME RECORDS TO COMPLETE THIS.. I HAVE RELAYED THIS INFORMATION TO ARLENE CARTER [employer] AND SHE STATED THAT THEY WERE GOING TO DISCHARGE THE PATIENT ON DUONEBS AND SYMBICORT. I WENT IN THE ROOM AND HAD A CONVERSATION WITH THE PATIENT. SHE IS AWARE OF HER INSURANCE SITUTATION SHE SAID MÓNICA CAME TO TALK TO HER. I HAVE EXPLAINED THAT THE NEBULIZER WOULD BE $ 50.00 OUT OF POCKET AND SHE STATED THAT SHE WOULD BE ABLE TO PAY IT, BUT NOT UNTIL AFTER SHE GETS HER PAYCHECK FROM HER JOB. 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 WHILE TYPING THIS NOTE, RECEIVED CALL BACK FROM [employer], . THEY DO HAVE ALL IN ONE NEBULIZERS THAT IF THE PATIENT BRINGS A SCRIPT (EVEN THOUGH SHE DOES NOT HAVE INSURANCE) SHE WOULD ONLY HAVE TO PAY $31.99. I WENT TO EXPLAIN THIS TO THE PATIENT AND SHE STATED THAT SHE WOULD RATHER DO THAT. I WILL GET HER THE SCRIPT THAT SHE NEEDS. DCP- Discharge Planning Updated by [id number]: Jazmine Rinaldi on 08/10/18 5:[address] @ 1121, MET WITH PATIENT IN REGARDS TO ORDER RECEIVED FOR NEBULIZER AND HOME OXYGEN. EXPLAINED THAT PER WALK TEST, SHE DOES NOT QUALIFY FOR HOME OXYGEN AND SHE STATED UNDERSTANDING. I VERIFIED THAT SHE DID NOT HAVE A HOME NUBULIZER AND SHE SAID NO. WHILE REVIEWING HER INSURANCE, SHE HAS STATED THAT SHE HAS QUALCHOICE MEDICAID. I QUESTIONED IF SHE HAD A CARD THAT I COULD MAKE A COPY OF TO SEND TO THE BUSINESS OFFICE, AND SHE STATED THAT SHE NEVER GOT A CARD, JUST A LETTER. I EXPLAINED THAT I WOULD SEE IF THERE WAS ANY WAY WE COULD VERIFY THIS BEFORE WE STARTED ORDERING EQUIPMENT. SHE WENT AHEAD AND SIGNED A JAKI FOR [facility]. I CALLED AND SPOKE WITH DANNA, WHO IS GOING TO TRY TO HELP ME SEE IF WE CAN GET THEINFORMATION. IF NOT, I WILL TRY TO GET WITH MED DATA FIRST THING IN THE AM. CM WILL CONTINUE TO FOLLOW FOR HOME NEEDS. DCP- Discharge Planning Updated by [id number]: Jhonny Fernandez on 08/09/18 4:[address] Patient Name: SAUMYA ACUNA Admission Status: ER Accout number: [id number] Admission Date: 08-08-2018 : 1975 Admission Diagnosis:UNSPECIFIED ATRIAL FIBRILLATION Attending: JODY VALADEZ Current LOS: 1 Anticipated DC Date: Planned Disposition: Home Primary Insurance: UNINSURED DISCOUNT PLAN Discharge Planning Comments: CM MET WITH PT AND MOTHER IN ROOM TO DISCUSS DISCHARGE PLANNING AND NEEDS. SAUMYA ACUNA provided verbal consent to discuss current and ongoing needs with/in the presence of: BETO, HER MOTHER. PT REPORTS LIVING AT HOME INDEPENDENTLY WITH HER MOTHER. PT HAS NO MEDICAL EQUIPMENT AND NO OUTSIDE SERVICES ASSISTING IN THE HOME. CM DISCUSSED AVAILABILITY OF HOME HEALTH, REHAB SERVICES AND MEDICAL EQUIPMENT. PT DENIES DISCHARGE NEEDS, REPORTS HER FAMILY WILL PICK HER UP FOR DISCHARGE HOME. PT REPORTS HAVING QUAL CHOICE PRIVATE OPTION INSURANCE BUT HAS NEVER RECEIVED A CARD. CM NOTIFIED MÓNICA OF [employer] WHO WILL MEET WITH PT THEY HAVE FOUND NO INSURANCE COVERAGE TO DATE. PT PLANS TO DISCHARGE HOME WITH MOTHER, DENIES NEEDS AT THIS TIME. CM TO FOLLOW AND ASSIST IF NEEDED. Learning Coordinator: Jhonny Fernandez DCPIA - Discharge Planning Initial Assessment Updated by [email or web address]: Jhonny Fernandez on 08/09/18 5:46 pm * Is the patient Alert and Oriented? Yes * How many steps to enter\exit or inside your home? NONE * PCP DR. COREAS * Pharmacy [facility] [place] * Preadmission Environment Home with Family * ADLs Independent * Equipment None * Other Equipment NO MEDICAL EQUIPMENT PROVIDER PREFERENCE * List name and contact numbers for known caregivers / representatives who currently or will assist patient after discharge: TINY REED, SON, MARIAH PÉREZ, MOM, * Verbal permission to speak to the caregivers and representatives has been obtained from the patient. Yes * Community resources currently utilized None * Please name any agencies selected above. NONE * Additional services required to return to the preadmission environment? No * Can the patient safely return to the preadmission environment? Yes * Has this patient been hospitalized within the prior 30 days at any hospital? No Coverage Notice Reviewer: [id number] Kai Rinaldi Notice Issued Date-Time: 08/10/2018 11:21 Notice Type: Patient Choice Letter Notice Delivered To: Patient Relationship to Patient: Self Gas Compressor Turbine Operator Name: Delivery Method: - Ruby Days: Prior Verbal Notification: Recipient Understood Notice: Recipient Signature: Med Rec Note Co-signed by Attending: Coverage Notice Comment: Last DP export: 08/11/18 10:40 am Patient Name: SAUMYA ACUNA Page [phone] at 1801 All edits/amendments must be made on the electronic document DICTATION DATE: 08/11/18 1800 ACTUARIAL ASSOCIATE: JACKELYN 08/11/18 1800 RPT#: [id number] DC DATE:08/11/18 STATUS: DIS IN [facility] [address] [place] [address] END OF REPORT
== END 2018-08-11 15:33 | disposition home or self-care (01) | DRG 314 ==
LOC: D.ER 23:45 → D.M2 08-08 02:33
PROVIDERS: Family Medicine; Internal Medicine Pulmonary Disease; ADMIT Internal Medicine Nephrology; ATTEND Internal Medicine Nephrology
DX: I27.0 Primary pulmonary hypertension (principal); J96.01 Acute respiratory failure with hypoxia; F17.213 Nicotine dependence, cigarettes, with withdrawal; I48.91 Unspecified atrial fibrillation; R94.31 Abnormal electrocardiogram [ECG] [EKG]; R10.9 Unspecified abdominal pain; J44.9 Chronic obstructive pulmonary disease, unspecified; E83.42 Hypomagnesemia; K80.20 Calculus of gallbladder without cholecystitis without obstruction; R91.1 Solitary pulmonary nodule

== ENCOUNTER 2018-08-14 20:36 | Inpatient (IN) | payer SELFPAY ==
[~2018-08-14] VITALS: Ht 160 cm; Wt 68.2 kg
[~2018-08-14 20:36] MED LIST changes: +ATROVENT 0.02%2.5 ML UPD; +CARDIZEM CD120 MG PO; +COMBIVENT RESPIM4 GM INH; +HYDRALAZINE HC100 MG PO; +MOBIC7.5 MG PO; +NORVASC10 MG PO
[2018-08-14 22:00] VITALS: BP 179/120
[2018-08-14 22:12] LABS: BASOPHILS 0.4 % (0-2); EOSINOPHILS 3.2 % (0-7); HEMATOCRIT 39.1 % (36.0-48.0); HEMOGLOBIN 13.6 g/dL (12-16); IMMATURE GRANULOCYTES 0.3 % (0-5); LYMPHOCYTES 34.5 % (15-50); MCHC 34.8 g/dL (31.0-37.0); MEAN PLATELET VOLUME 10.6 fL (7.4-10.4); MONOCYTES 7.4 % (2-11); NEUTROPHILS 54.2 % (40-80); PLATELET COUNT 209 10x3/uL (130-400); RBC 4.25 10x6/uL (4.00-5.40); RDW 12.8 % (11.5-14.5); WBC 7.9 10x3/uL (4.8-10.8)
[2018-08-14 22:24] LABS: ALBUMIN 2.8 g/dL (3.4-5.0); ALKALINE PHOSPHATASE 96 U/L (46-116); ALT (SGPT) 41 U/L (10-68); BILIRUBIN - TOTAL 0.46 mg/dL (0.2-1.3); CALC OSMOLALITY 273 mosm/kg (275-300); CALCIUM 8.9 mg/dL (8.5-10.1); CARBON DIOXIDE 23.6 mmol/L (21.0-32.0); CHLORIDE - SERUM 102 mmol/L (98-107); CREATININE - SERUM 0.5 mg/dL (0.6-1.3); GLUCOSE 113 mg/dL (74-106); POTASSIUM - SERUM 3.6 mmol/L (3.5-5.1); PROTEIN - SERUM 7.7 g/dL (6.4-8.2); SODIUM 136 mmol/L (136-145); UREA NITROGEN 16 mg/dL (7-18); eGFR NON AFRICAN AMERICAN > 90 mL/min (90-120)
[2018-08-14 22:28] LABS: TROPONIN-I 0.036 ng/mL (0.000-0.060)
[2018-08-14 22:30] VITALS: BP 152/114
--- NOTE | 2018-08-14 22:45 | NUR ---
PT RETURNED FROM CT VIA STRETCHER.
[2018-08-14 23:00] VITALS: BP 163/114
--- NOTE | 2018-08-14 23:34 | NUR ---
PT SLEEPING ON BED, NO S/S OF ACUTE DISTRESS NOTED.
[2018-08-15] VITALS (11 sets, daily range): BP systolic 107–187; BP diastolic 77–118; Ht 160 cm; Wt 68.2 kg
--- NOTE | 2018-08-15 00:34 | NUR ---
PT RESTING ON BED, PT DENIES NEEDS AT THIS TIME.
[2018-08-15 01:30] LABS: UDS - AMPHET NEGATIVE QUAL (NEGATIVE); UDS - BARB NEGATIVE QUAL (NEGATIVE); UDS - BENZO NEGATIVE QUAL (NEGATIVE); UDS - COCAINE NEGATIVE QUAL (NEGATIVE); UDS - OPIATE NEGATIVE QUAL (NEGATIVE); UDS - PCP NEGATIVE QUAL (NEGATIVE); UDS - THC POSITIVE QUAL (NEGATIVE)
[2018-08-15 01:32] LABS: APPEARANCE CLOUDY (CLEAR); BACTERIA MANY /hpf (NONE SEEN); BILIRUBIN NEGATIVE (NEGATIVE); COLOR YELLOW (YELLOW); EPITHELIAL CELLS 0-5 /hpf (0-5); GLUCOSE NEGATIVE (NEGATIVE); KETONE NEGATIVE (NEGATIVE); NITRITE POSITIVE (NEGATIVE); PROTEIN NEGATIVE (NEGATIVE); RED CELLS - URINE OCC /hpf (0-5); SPECIFIC GRAVITY 1.015 (1.005-1.020); UROBILINOGEN NORMAL (NORMAL)
--- NOTE | 2018-08-15 01:45 | NUR ---
PT DENIES NEEDS AT THIS TIME.
--- NOTE | 2018-08-15 02:30 | NUR ---
PT UPDATED ON PLAN OF CARE. PT DENIES FURTHER QUESTIONS.
--- NOTE | 2018-08-15 04:32 | NUR ---
RECIEVED REPORT FROM SHELLIE IN ER. ARRIVED TO FLOOR ON STRETCHER ACCOMPANIED BY STAFF. TRANSFER TO BED BY SELF. IV TO LEFT FA WITH NS INFUSING AT 125/HR AT THIS TIME. C/O HEADACE. B/P 151/108 AT THIS TIME. ER NURSE STATED WOULD GIVE HER A CLONIDINE BEFORE SHE LEFT ER. WILL CONT TO OBSERVER B/P. DENIES ANY OTHER NEEDS EXCEPT SLEEP AT THIS TIME.
[2018-08-15 05:38] LABS: BASOPHILS 0.5 % (0-2); EOSINOPHILS 2.5 % (0-7); HEMATOCRIT 44.1 % (36.0-48.0); HEMOGLOBIN 14.9 g/dL (12-16); IMMATURE GRANULOCYTES 0.4 % (0-5); LYMPHOCYTES 24.9 % (15-50); MCH 32.2 pg (26.0-34.0); MCHC 33.8 g/dL (31.0-37.0); MCV 95.2 fL (80.0-100.0); MEAN PLATELET VOLUME 10.5 fL (7.4-10.4); MONOCYTES 7.3 % (2-11); NEUTROPHILS 64.4 % (40-80); PLATELET COUNT 279 10x3/uL (130-400); RBC 4.63 10x6/uL (4.00-5.40); RDW 13.1 % (11.5-14.5); WBC 7.7 10x3/uL (4.8-10.8)
[2018-08-15 06:05] LABS: CALC OSMOLALITY 281 mosm/kg (275-300); CALCIUM 8.5 mg/dL (8.5-10.1); CARBON DIOXIDE 23.5 mmol/L (21.0-32.0); CHLORIDE - SERUM 106 mmol/L (98-107); CKMB 2.1 U/L (0.0-3.6); CREATINE KINASE 88 UL (21-215); CREATININE - SERUM 0.6 mg/dL (0.6-1.3); GLUCOSE 108 mg/dL (74-106); SODIUM 141 mmol/L (136-145); TROPONIN-I 0.037 ng/mL (0.000-0.060); UREA NITROGEN 13 mg/dL (7-18); eGFR NON AFRICAN AMERICAN > 90 mL/min (90-120)
[2018-08-15 06:09] LABS: POTASSIUM - SERUM 4.2 mmol/L (3.5-5.1)
--- NOTE | 2018-08-15 10:14 | NUR ---
PULLMAN CAR REPAIRER NOTIFIED OF C/O VERA. ES TYLENOL ORDERED. WILL CONT. TO MONITOR NEEDS.
--- NOTE | 2018-08-15 14:06 | NUR ---
PT STATES SHE DOES NOT NEED A NICOTIENE PATCH AT THIS TIME
--- NOTE | 2018-08-15 19:55 | NUR ---
INITIAL ROUNDS, PT RESTING IN BED WITH EYES CLOSED. RESPS EVEN/NONLABORED. SR PER TELEMETRY. NONLABORED RESPIRATIONS ON ROOM AIR. REFUSING TO WEAR SCDS. PIV TO LFA WITH NS @ 125ML/HR INFUSING. CALL LIGHT IN REACH. MONITOR AND CPOC.
--- NOTE | 2018-08-15 22:21 | NUR ---
ROUNDS BY DR VALADEZ. PT RESTING. IVF INFUSING. MONITOR AND CPOC.
--- NOTE | 2018-08-15 22:53 | NUR ---
BEDTIME MEDS GIVEN. PT SLEEPS DEEPLY BUT AWAKENS TO CALLING OF NAME EASILY.
--- NOTE | 2018-08-16 02:49 | NUR ---
IV ABT UP AND INFUSING. IVF NS @ 125ML/HR INFUSING TO LFA. PT ROUSES TO NOISE IN ROOM. BACK TO SLEEP. CALL LIGHT IN REACH. MONITOR AND CPOC.
[2018-08-16 03:39] VITALS: BP 145/97
[2018-08-16 08:54] VITALS: BP 137/112
--- NOTE | 2018-08-16 10:00 | NUR ---
C/O OF SEVERE VERA. NEW ORDERS GIVEN.
[2018-08-16 11:33] VITALS: BP 162/98
--- NOTE | 2018-08-16 13:35 | NUR ---
IV RESTARTED TO RIGHT WRIST WITH 22 GAUGE CAHTH X 1 STICK BY LILI COFFEY. LINE IS PATENT.
[2018-08-16 17:16] VITALS: BP 130/94
--- NOTE | 2018-08-16 19:30 | NUR ---
RESUMING PATIENT CARE. PATIENT IS ALERT AND ORIENTED, RESTING COMFORTABLY IN BED. RESPIRATIONS ARE EVEN AND UNLABORED. NO S/S OF DISTRESS. NO C/O PAIN. CALL LIGHT WITHIN REACH. WILL CPOC.
[2018-08-16 20:00] VITALS: BP 128/91
[2018-08-16 23:55] VITALS: BP 106/68; BP 128/91
--- NOTE | 2018-08-17 02:31 | NUR ---
PATIENT RESTING COMFORTABLY IN BED. RESPIRATIONS ARE EVEN AND UNLABORED. NO S/S OF DISTRESS. CALL LIGHT WITHIN REACH. WILL CPOC.
[2018-08-17 04:31] VITALS: BP 124/91
[2018-08-17 06:46] LABS: CALC OSMOLALITY 280 mosm/kg (275-300); CALCIUM 7.9 mg/dL (8.5-10.1); CHLORIDE - SERUM 111 mmol/L (98-107); CREATININE - SERUM 0.6 mg/dL (0.6-1.3); GLUCOSE 78 mg/dL (74-106); POTASSIUM - SERUM 4.1 mmol/L (3.5-5.1); SODIUM 141 mmol/L (136-145); UREA NITROGEN 14 mg/dL (7-18); eGFR NON AFRICAN AMERICAN > 90 mL/min (90-120)
[2018-08-17 07:21] LABS: BASOPHILS 0.7 % (0-2); HEMATOCRIT 35.5 % (36.0-48.0); IMMATURE GRANULOCYTES 0.3 % (0-5); LYMPHOCYTES 40.6 % (15-50); MCH 31.8 pg (26.0-34.0); MCHC 33.2 g/dL (31.0-37.0); MCV 95.7 fL (80.0-100.0); MEAN PLATELET VOLUME 10.9 fL (7.4-10.4); NEUTROPHILS 43.4 % (40-80); PLATELET COUNT 324 10x3/uL (130-400); RBC 3.71 10x6/uL (4.00-5.40); RDW 13.2 % (11.5-14.5)
[2018-08-17 07:36] LABS: HEMOGLOBIN 11.8 g/dL (12-16)
[2018-08-17] MEDS ORDERED: LEVAQUIN750 MG PO (08:13)
[2018-08-17 09:00] VITALS: BP 121/102
--- NOTE | 2018-08-17 10:24 | NUR ---
IV AND TELEMETRY DCD. DC PLANS GIVEN. UNDERSTANDING VOICED.
--- NOTE | 2018-08-17 10:48 | NUR ---
ESCORTED TO CAT BY W/C.
--- NOTE | 2018-08-17 17:25 | MORECARE ---
CASE MANAGEMENT DISCHARGE SUMMARY PATIENT: SAUMYA ACUNA UNIT: [id number] ADM DATE: 08/15/18 AGE: 43 : 75 SEX: F ROOM/BED: D.6284 AUTHOR: JAYSON MAJANO PHYSICIAN: REFERRING PHYSICIAN: COREY RAMOS MD DATE OF SERVICE: 08/17/18 Discharge Plan Patient Name: SAUMYA ACUNA [facility] [facility] 1975 Planned Disposition: Home Anticipated Discharge Date: 08/17/18 Discharge Date: 08/17/2018 Expected LOS: 2 Initial Reviewer: [email or web address] Initial Review Date: 08/17/2018 Generated: 08/17/18 6:25 pm DCPIA - Discharge Planning Initial Assessment Updated by [email or web address]: Jhonny Fernandez on 08/17/18 5:17 pm * Is the patient Alert and Oriented? Yes * How many steps to enter\exit or inside your home? NONE * PCP DR. COREAS * [facility] [place] * Preadmission Environment Home with Family * ADLs Independent * Equipment None * Other Equipment NEBULIZER IS AT [facility] IN [place] FOR PT TO BOX BRANDER...PT STATES SHE WILL PICK IT UP TODAY AND DID NOT GET IT AFTER LAST DISCHARGE. * List name and contact numbers for known caregivers / representatives who currently or will assist patient after discharge: TINY REED, SON, * Verbal permission to speak to the caregivers and representatives has been obtained from the patient. N/A * Community resources currently utilized None * Please name any agencies selected above. NONE * Additional services required to return to the preadmission environment? No * Can the patient safely return to the preadmission environment? Yes * Has this patient been hospitalized within the prior 30 days at any hospital? Yes Patient Name: SAUMYA ACUNA Page [id number] at 1722 All edits/amendments must be made on the electronic document DICTATION DATE: 08/17/181724 MERCHANDISING SPECIALIST: JACKELYN 08/17/18 1725 RPT#: [id number] DC DATE:04/10/19 STATUS: DIS IN [facility] [address] [place] [address] END OF REPORT
== END 2018-08-17 10:49 | disposition home or self-care (01) | DRG 690 ==
LOC: D.ER 20:36 → OBSVTIME 08-15 02:24 → D.M2 08-15 02:24
PROVIDERS: Family Medicine; Internal Medicine Nephrology; ADMIT Family Medicine; ATTEND Family Medicine
DX: N39.0 Urinary tract infection, site not specified (principal); F17.213 Nicotine dependence, cigarettes, with withdrawal; G43.909 Migraine, unspecified, not intractable, without status migrainosus; I27.20 Pulmonary hypertension, unspecified; I48.91 Unspecified atrial fibrillation; J44.9 Chronic obstructive pulmonary disease, unspecified

== ENCOUNTER 2019-04-23 22:44 | Emergency (ER) | payer SELFPAY ==
[~2019-04-23] VITALS: Ht 160 cm; Wt 72.7 kg
[2019-04-23 22:50] VITALS: Ht 160 cm; Wt 72.7 kg
[2019-04-23] MEDS ORDERED: KEFLEX500 MG PO (23:07)
[2019-04-23] MEDS ORDERED: SMZ-TMP DS 800-1 TAB PO (23:07)
[2019-04-23 23:41] VITALS: BP 100/71
== END 2019-04-23 23:41 | disposition home or self-care (01) ==
LOC: D.ER 22:44
DX: L03.115 Cellulitis of right lower limb (principal); J44.9 Chronic obstructive pulmonary disease, unspecified; Z72.0 Tobacco use; T63.301A Toxic effect of unspecified spider venom, accidental (unintentional), initial encounter; Y92.9 Unspecified place or not applicable

== ENCOUNTER 2019-05-20 15:09 | Emergency (ER) | payer SELFPAY ==
[~2019-05-20] VITALS: Ht 160 cm; Wt 70.5 kg
[~2019-05-20 15:09] MED LIST changes: +KEFLEX500 MG PO; +SMZ-TMP DS 800-1 TAB PO
[2019-05-20 15:17] VITALS: Ht 160 cm; Wt 70.5 kg
[2019-05-20 18:41] VITALS: BP 178/120
== END 2019-05-20 18:41 | disposition home or self-care (01) ==
LOC: D.ER 15:09
DX: L02.415 Cutaneous abscess of right lower limb (principal); Z91.14 Patient's other noncompliance with medication regimen; J44.9 Chronic obstructive pulmonary disease, unspecified; I48.91 Unspecified atrial fibrillation; Z72.0 Tobacco use